=== PATIENT | female | born 1965 ===

== ENCOUNTER 2024-02-15 12:20 | Outpatient (REF) | payer SELFPAY ==
[2024-02-15 16:38] LABS: Basophils Percent Auto 0.5 % (0-2); Eosinophils Absolute Auto 0.1 X10*3/uL (0.0-0.4); Eosinophils Percent Auto 0.9 % (0-4); Hematocrit 40.6 % (37.0-47.0); Imm Gran Abs Auto 0.01 X10*3/uL (0.00-0.03); Imm Gran Pct Auto 0.2 % (0.0-0.4); Lymphocytes Percent Auto 34.7 % (20-40); MANUAL DIFF FLAG NO; Mean Corpuscular Hemoglobin 27.5 pg (27.0-33.0); Mean Platelet Volume 9.9 fL (9.4-12.3); Monocytes Absolute Auto 0.4 X10*3/uL (0.1-1.2); Monocytes Percent Auto 7.1 % (2-11); Neutrophils Absolute Auto 3.2 x10*3/uL (2.0-8.3); Neutrophils Percent Auto 56.6 % (45-73); Platelet Count 319 X10*3/uL (160-400); Red Blood Count 4.72 X10*6/uL (4.20-5.50); Red Cell Distribution Width 16.4 % (11.0-16.0); White Blood Count 5.6 X10*3/uL (4.8-10.8)
[2024-02-15 17:12] LABS: Estimated Average Glucose 126 mg/dL
[2024-02-15 17:20] LABS: Alanine Aminotransferase 10 U/L (0-31); Albumin Level 3.8 g/dL (3.5-5.0); Alkaline Phosphatase 61 U/L (39-117); Anion Gap 14 (12-20); Aspartate Amino Transferase 18 U/L (5-31); Bilirubin Total 0.3 mg/dL (0.0-1.0); Blood Urea Nitrogen 8 mg/dL (9-16); Calcium 9.6 mg/dL (8.4-10.2); Carbon Dioxide 22 mmol/L (22-29); Chloride 107 mmol/L (96-108); Cholesterol 221 mg/dL (<200); Estimated Glomerular Filt Rate > 60; Glucose Random 70 mg/dL (60-115); HDL Cholesterol 38 mg/dL (>40); LDL Cholesterol Calculated 147 mg/dL (<100); Potassium 4.1 mmol/L (3.3-5.1); Sodium 139 mmol/L (135-145); Total Protein 7.5 g/dL (6.5-8.0); Triglycerides 184 mg/dL (<150)
[2024-02-15 17:32] LABS: Thyroid Stimulating Hormone 1.35 uIU/mL (0.32-4.0)
== END 2024-02-15 12:21 | disposition home or self-care (01) ==
LOC: HO.HHCL 12:20
PROVIDERS: Visit Provider Nurse Practitioner Family
DX: E03.8 Other specified hypothyroidism (principal); E06.3 Autoimmune thyroiditis; I10 Essential (primary) hypertension; E11.9 Type 2 diabetes mellitus without complications; R55 Syncope and collapse; R30.0 Dysuria
CPT/HCPCS: 36415; 80053; 80061; 83036; 84443; 85025; 87086

== ENCOUNTER 2024-02-29 10:11 | Outpatient (REF) | payer MEDICAID, SELFPAY ==
--- NOTE | ~2024-02-29 | XR_ITS ---
EXAMINATION: XR SHOULDER, RIGHT CLINICAL INFORMATION: Right shoulder pain with decreased range of motion. COMPARISON: None available. TECHNIQUE: AP external rotation, Grashey, scapular Y, and axillary views of the right shoulder. FINDINGS: No fracture appreciated. Glenohumeral and acromioclavicular alignment is anatomic with normal joint space. Mild thoracic dextrocurvature. Soft tissues appear unremarkable. XR/XR shoulder RT min 2V IMPRESSION: Essentially unremarkable plain film examination of the right shoulder. Electronically signed by: Jose Jon MD 02/29/2024 11:25 AM EDT
== END 2024-02-29 10:12 | disposition home or self-care (01) ==
LOC: HO.HHCX 10:11
PROVIDERS: Visit Provider Nurse Practitioner Family
DX: M12.811 Other specific arthropathies, not elsewhere classified, right shoulder (principal)
CPT/HCPCS: 73030

== ENCOUNTER 2025-01-30 09:18 | Outpatient (REF) | payer MEDICAID, SELFPAY ==
--- OUTSIDE RECORDS SUMMARY | 2025-01-30 09:00 | XMS_ITS | Encounter Summary ---
Author Organization [employer] Address [address] [facility] [address] [place] [address] Care Team Providers Care Customer Care Associate Name Role Phone Denisha Cardenas NP Primary Care Provider [phone] Reason for Visit * Reason Comments Back Pain UTI Encounter Details Date Type Department Care Team ([facility] Contact Info) Description 01/30/2025 9:00 AM EDT Office Visit [facility] [address] [place], [place] [phone] Maylin Mensah, TAYLER [address] [place] [address] Ketonuria (Primary Dx); UTI symptoms Social History [...] new partners Non-smoker Kulwant Bain ROBER provided Khmer interpretation. Review of Systems Constitutional: Negative for [...] sciatic nerve pain documented in this encounter Plan of Treatment Upcoming Encounters Date Type Department Care Team (Late st Contact Info) Description 02/03/2025 1:15 PM EDT Office Visit [facility] [address] [place], [place] [phone] Cecilia Blood, ENRIKE [address] [place], [place] [phone] 03/06/2025 2:30 PM EDT Office Visit [facility] [address] [place] [address] Denisha Cardenas NP [address] [place], [place] [phone] Scheduled Orders Name Type Priority Associated Diagnoses Orde r Schedule Culture, Urine, Routine Microbiology Routine UTI symptoms Ordered: 01/30/2025 documented as of this encounter Procedures Procedure Name Priority Date/Time Associated Diagnosis Comments POCT URINALYSIS DIPSTICK Routine 01/30/2025 8:56 AM EDT UTI symptoms documented in this encounter Results * POCT urinalysis dipstick manually resulted (01/30/2025 [...] None Detected Urine 01/30/2025 8:56 AM EDT Critical access hospital POINT OF CARE TEST ENTER/EDIT OR DERABLES Final Result documented in this encounter Visit Diagnoses Diagnosis Ketonuria- Primary Acetonuria UTI symptoms documented in this encounter Additional Health Concerns Assessment Noted Time PHQ-9 Depression Total Score: 7 09/10/19 25 10:37 AM EDT documented as of this encounter Care Teams Customer Care Associate Relationship Specialty Start Date End Date Denisha Cardenas NP [address] [place] [phone] PCP - General Family Medicine 02/15/24 documented as of this encounter
--- OUTSIDE RECORDS SUMMARY | 2025-01-30 10:02 | XMS_ITS | Clinical Summary ---
Author Organization [facility] Address [address] [place] [address] Care Team Providers Care Training Systems Officer Name Role Phone Unavailable Primary Care Provider Unavailabl e Social History Tobacco Use Types Packs/Day Years Used Date Smoking Tobacco: Never Assessed Comments Unknown Sex and Gender Information Value Date Recorded Sex Assigned at Not on file Legal Sex Female 11:38 AM EDT Gender Identity Not on file Sexual Orientation Not on file Plan of Treatment Health Maintenance Due Date Last Done Comments Breast Cancer Screening 1966 DTaP,Tdap,and Td Vaccines (1 - Tdap) 1985 Hepatitis B Vaccines (1 of 3 - 19+ 3-dose series) 1985 Cervical Cancer Screening: P ap Smear 1987 Pneumococcal Vaccine: 50+ Ye ars (1 of 1 - PCV) 2016 Zoster Vaccines (1 of 2) 2016 Colorectal Cancer Screening: Colonoscopy 03/05/2024 HIV Screening 03/05/2024 Hepatitis C Screening 03/05/2024 Social Influencers of Health Screening 03/05/2024 Depression Screening 05/28/2024 COVID-19 Vaccine ( - 2023-2 5 season) 2025 Influenza Vaccine (#1) 2025 HIB Vaccines Aged Out No longer eligi ble based on patient's age to complete this topic HPV Vaccines Aged Out No longer eligi ble based on patient's age to complete this topic Hepatitis A Vaccines Aged Out No long er eligible based on patient's age to complete this topic IPV Vaccines Aged Out No longer eligi ble based on patient's age to complete this topic MMR Vaccines Aged Out No longer eligi ble based on patient's age to complete this topic Meningococcal ACWY Vaccine Aged Out N o longer eligible based on patient's age to complete this topic Meningococcal B Vaccine Aged Out No l onger eligible based on patient's age to complete this topic RSV Immunization Patients Un fariba 20 months Aged Out No longer eligible b ased on patient's age to complete this topic Varicella Vaccines Aged Out No longer eligible based on patient's age to complete this topic
--- OUTSIDE RECORDS SUMMARY | 2025-01-30 10:02 | XMS_ITS | Encounter Summary ---
Author Organization [employer] Address [address] [facility] 7 [place] [address] Care Team Providers Care Steamblaster Name Role Phone Denisha Cardenas NP Primary Care Provider [phone] Encounter Details Date Type Department Care Team ([facility] st Contact Info) Description 10/14/2024 Orders Only [facility] [address] [place], [place] [phone] Emani Farmer MD [address] [place] [address] Social History Tobacco Use Types Packs/Day Years [...] AM EDT documented as of this encounter Plan of Treatment Upcoming Encounters Date Type Department Care Team (Late st Contact Info) Description 02/03/2025 1:15 PM EDT Office Visit [facility] [address] [place] [address] Cecilia Blood, OD [address] [place] [address] 03/06/2025 2:30 PM EDT Office Visit [facility] [address] [place] [address] Denisha Cardenas NP [address] [place] [address] documented as of this encounter Visit Diagnoses Not on filedocumented in this encounter Additional Health Concerns Assessment Noted Time PHQ-9 Depression Total Score: 7 09/10/19 25 10:37 AM EDT documented as of this encounter Care Teams Steamblaster Relationship Specialty Start Date End Date Denisha Cardenas NP [address] [place] [phone] PCP - General Family Medicine 02/15/24 documented as of this encounter
--- OUTSIDE RECORDS SUMMARY | 2025-01-30 10:03 | XMS_ITS | Encounter Summary ---
Author Organization [employer] Address [address] [facility] [address] [place] [address] Care Team Providers Care Office Administrator Name Role Phone Denisha Cardenas NP Primary Care Provider [phone] Encounter Details Date Type Department Care Team (Latest Contact Info) Description 01/30/2025 Travel Social History Tobacco Use Types Packs/Day Years [...] Description 02/03/2025 1:15 PM EDT Office Visit [facility] [address] [place] [address] Cecilia Blood, OD [address] [place] [address] 03/06/2025 2:30 PM EDT Office Visit [facility] [address] [place] [address] Denisha Cardenas NP [address] [place] [address] documented as of this encounter Visit Diagnoses Not on filedocumented in this encounter Additional Health Concerns Assessment Noted Time PHQ-9 Depression Total Score: 7 09/10/19 25 10:37 AM EDT documented as of this encounter Care Teams Office Administrator Relationship Specialty Start Date End Date Denisha Cardenas NP [address] [place] [address] PCP - General Family Medicine 02/15/24 documented as of this encounter
--- OUTSIDE RECORDS SUMMARY | 2025-01-30 10:03 | XMS_ITS | Clinical Summary ---
Author Organization [employer] Address [address] [place] [address] [address], [place] [address] Care Team Providers Care Pony Ride Operator Name Role Phone Denisha Cardenas NP Primary Care Provider [phone] Allergies Active Allergy Reactions Criticality Noted Date Comments Dexamethasone Rash Low 04/11/2024 Ketorolac Tromethamine Rash Low 04/11/2024 Shellfish Allergy 02/15/2024 Other Reaction(s): swelling, itching Medications * This document contains information received from the source organization and may not represent a complete record from that organization. levothyroxine (Synthroid) 25 MCG tablet Take 1 tablet (25 mcg) by mouth before breakfast. 90 tablet 3 4 03/28/20 25 Active losartan (Cozaar) 50 MG tablet TAKE 1 TABLET BY MOUTH EVERY DAY 90 tablet 5 Active Ketotifen Fumarate 0.035 % solutionIndicat ions:Seasonal allergic rhinitis due to pollen Administer 1 drop into affected eye(s) 2 times daily. 10 mL 2 5 Active sertraline (Zoloft) 100 MG tabletIndicatio ns:Anxiety Take 1 tablet (100 mg) by mouth in the morning. 30 tablet 1 5 Active clonazePAM (KlonoPIN) 0.5 MG tabletIndicatio ns:JIMBO (generalized anxiety disorder) Take 1 tablet (0.5 mg) by mouth if needed each day for anxiety (as needed for panic). 30 tablet 5 Active cromolyn (Nasachrom) 5.2 MG/ACT nasal spray Administer 1 spray into each nostril 4 times daily. 26 mL 12 5 10/15/19 26 Active pantoprazole (ProtoNix) 40 MG EC tablet TAKE 1 TABLET BY MOUTH BEFORE BREAKFAST. DO NOT CRUSH, CHEW OR SPLIT. 90 tablet 1 5 Active loratadine (Claritin) 10 MG tabletIndicatio ns:Seasonal allergic rhinitis due to pollen TAKE 1 TABLET (10 MG) BY MOUTH ONCE PER DAY. 90 tablet 5 Active hydrOXYzine pamoate (Vistaril) 25 MG capsuleIndicati ons:JIMBO (generalized anxiety disorder) Take 1 capsule (25 mg) by mouth if needed in the morning and at bedtime for anxiety. May take the 2 caps at hs. Do not start before November 08, 2024. 30 capsule 1 5 Active cyclobenzaprine (Flexeril) 10 MG tabletIndicatio ns:Right sciatic nerve pain Take 1 tablet (10 mg) by mouth if needed at bedtime for muscle spasms for up to 10 days. 30 tablet 5 Active Active Problems Problem Noted Date Diagnosed Date Right sciatic nerve pain 11/14/2024 Assessment & Plan (11/16/2024 3:57 PM EDT): Pt with right leg sciatica, no oncologic history, no consitutional symptoms fever, no symptoms are gradually improving Referral to pt Return to clinic for reassessment, Dietary counseling 10/06/2024 Assessment & Plan (10/19/2024 2:57 PM EDT): Dietary Recommendations: Fruits, vegetables, whole grains, protein foods, and fat-free or low-fat dairy products are healthy choices. Eat different types of protein foods in your diet. This can include seafood, lean meats, poultry, beans, peas, lentils, nuts, seeds, soy products, and eggs. Limit foods and beverages higher in added sugars, saturated fat, and sodium. Exercise Recommendations: At least 150 minutes of moderate-intensity physical activity per week, or an equivalent combination of moderate- and vigorous-intensity activity Exercise counseling 10/06/2024 Hyperglycemia 10/06/2024 Hypothyroidism 10/06/2024 Seasonal allergic rhinitis due to pollen 025 Assessment & Plan (10/19/2024 2:58 PM EDT): Flonase and nasal spray prescribed Return to clinic for failure to improve. Panic 08/18/2024 Severe episode of recurrent major depressive disorder, without psychotic features 05/26/2024 Chronic right shoulder pain 05/26/2024 Assessment & Plan (05/26/2024 5:41 PM EST): Referral to ortho pt has limited rom Gastroesophageal reflux disease 05/26/2024 Obesity (BMI 35.0-39.9 without comorbidity) 04/29 Symptomatic varicose veins of right lower extrem ity 05/26/2024 Assessment & Plan (05/26/2024 5:42 PM EST): Trial compression stockings, ordered today Health maintenance alteration 05/26/2024 Irritable bowel syndrome wit h both constipation and diarrhea 04/14/2024 Assessment & Plan (05/26/2024 5:42 PM EST): Upcoming visit with GI Assessment & Plan (04/14/2024 2:11 PM EST): Increased IBS symptoms, has had endoscopy and colonoscopy within last 2 years for these symptoms, but does endorse increased anxiety and intermittent benefit from pepcid Add pantoprazole, follow up in 4 weeks If no improvement referral to GI No wt loss, no abd pain no blood in stool Anxiety 04/14/2024 Assessment & Plan (04/14/2024 2:11 PM EST): Increase sertraline to 100 mg, referral to Follow up in 4 weeks Vertigo 04/14/2024 Assessment & Plan (04/14/2024 2:12 PM EST): Brief sensation of unsteadiness after turning head rapidly, Resolves within minutes Monitor, consider ENT Rotator cuff arthropathy, right 02/29/2024 Assessment & Plan (02/29/2024 10:29 AM EDT): Suspect frozen shoulder, limited forward flexion on exam and no preceding trauma, X-ray ordered, Referral to physical therapy and ortho Breast screening 02/29/2024 Pre-diabetes 02/28/2024 Elevated lipoprotein(a) 02/28/2024 Assessment & Plan (02/29/2024 10:30 AM EDT): Above goal, consider statin, Will address at follow up visit as losartan reduction and hypotension was today's focus Hypertension 02/15/2024 Assessment & Plan (05/26/2024 5:42 PM EST): At goal at home, Continue current regimen Assessment & Plan (04/14/2024 2:11 PM EST): At goal with losartan 50 mg. continue Assessment & Plan (02/29/2024 10:23 AM EDT): Hypotension possibly secondary to overcorrection, bps at home consistently well below goal and pt lightheaded with position change Reduce losartan 50 mg. 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 Assessment & Plan (02/15/2024 6:04 PM EDT): Resume levothyroxine, labs ordered JIMBO (generalized anxiety disorder) 02/15/2024 Assessment & Plan (02/15/2024 6:05 PM EDT): Reviewed sparing usage of clonapin, I will renew, but enouraged pt to not take daily and rx will ideally last 45 days Pt open to increasing sertraline , increase to 50 mg Ibh unavailable at time of visit but will call pt this afternoon Presence of implantable pulm onary artery pressure and heart rate monitoring system 02/15/2024 Assessment & Plan (02/15/2024 6:04 PM EDT): Referral to cardiology Syncope 02/15/2024 Cardiac arrhythmia 02/15/2024 Encounters * This document contains information received from the source organization and may not represent a complete record from that organization. Date Type Department Care Team Description 01/30/2025 9:00 AM EDT Office Visit [facility] [address] [place] [phone] Maylin Mensah ANP Ketonuria (Primary Dx); UTI symptoms 01/30/2025 Travel 01/20/2025 Patient Outreach [facility] [address] [place] [phone] Denisha Cardenas NP Care Coordination ([facility]3 [facility] telephone call graduate ) 01/20/2025 Patient Outreach [facility] [address] [place] [phone] Denisha Cardenas NP Care Coordination ([facility] telephone call outreach) 01/13/2025 Telephone [facility] [address] [place] [phone] Cecilia Blood, ENRIKE 01/13/2025 Travel 12/17/2024 Patient Outreach [address] [phone] Denisha Cardenas NP Care Management (C3[facility]- Follow up call/LVM) 11/19/2024 Patient Outreach [address] [phone] Denisha Cardenas NP Care Coordination 11/17/2024 2:45 PM EDT Office Visit [facility] [address] [place] [phone] Galina Holland, OD Presbyopia (Primary Dx) 11/14/2024 4:00 PM EDT Office Visit [facility] [address] [place] [phone] Denisha Cardenas NP Type 2 diabetes mellitus without complication, unspecified whether senior care insulin use ([facility]) (Primary Dx); Right sciatic nerve pain 11/14/2024 Travel 11/12/2024 Patient Outreach [address] [phone] Denisha Cardenas NP 11/11/2024 Patient Outreach [address] [phone] Denisha Cardenas NP Care Management (C3[facility]- Follow up call # 3) 11/07/2024 Patient Outreach [address] [phone] Denisha Cardenas NP Care Coordination 11/04/[address] [phone] Denisha Cardenas NP Seasonal allergic rhinitis due to pollen from Last 3 Months Family History Medical History Relation Name Comments Diabetes Brother Diabetes Father Diabetes Mother Glaucoma Mother Relation Name Status Comments Brother Father Mother Social History Tobacco Use Types Packs/Day Years Used Date Smoking Tobacco: Never Passive Smoke Exposure: Never Smokeless Tobacco: Never Tobacco Cessation:Counseling Given: Not Answered Alcohol Use Standard Drinks/Week Comments Never 0 (1 standard drink = 0.6 oz pur e alcohol) Depression Answer Date Recorded Patient Health Questionnaire-9 Score 7 09/09/2024 Patient Health Questionnaire-9 Score 7 09/09/2024 Last PHQ-9: Questionnaire Data Not on file 0 09/09/2024 Housing Stability Answer Date Recorded What is your housing situation today? I have siapranav palacios 02/15/[address] you [...] the past 12 months, has t he [employer], [employer], oil or water company threatened to shut [...] Orientation Straight 02/15/2024 10 :49 AM EDT Last Filed Vital Signs Vital Sign Reading Time Taken Comments Blood Pressure 120/88 01/30/2025 9:10 AM EDT Pulse 75 01/30/2025 8:51 AM EDT Temperature 36.3 C (97.3 F) 01/30/2025 8:51 AM EDT Respiratory Rate 18 01/30/2025 8:51 AM EDT Oxygen Saturation 97% 01/30/2025 8:51 AM EDT Inhaled Oxygen Concentration - - Weight 101 kg (222 lb 9.6 oz) 01/30/2025 8:51 AM EDT Height 160 cm (5' 3 ) 10/06/2024 3:17 PM EDT Body Mass Index 39.43 10/06/2024 3:17 PM EDT Plan of Treatment Upcoming Encounters Date Type Department Care Team (Late st Contact Info) Description 02/03/2025 1:15 PM EDT Office Visit [facility] [address] [place] [address] Cecilia Blood, OD [address] [place] [address] 03/06/2025 2:30 PM EDT Office Visit [facility] [address] [place] [address] Denisha Cardenas NP [address] [place] [address] Health Maintenance Due Date Last Done Comments CT Colonography 1966 Colonoscopy 1966 Colorectal Cancer Screening 1966 FIT DNA/Cologuard 1966 FIT 1966 FOBT 1966 HIV Screening 1966 Sigmoidoscopy 1966 Disability Screening 1966 Diabetes: Foot Exam 1976 Hepatitis C Screening 1984 DTaP/Tdap/Td Vaccines (1 - Tdap) 1985 Diabetes: Urine Protein Screening 1985 Hepatitis B Vaccines (1 of 3 - 19+ 3-dose series) 1985 Pneumococcal Vaccine: 50+ Years (1 of 2 - PCV) 1985 Pap Smear 1987 Cervical Cancer Screening 1996 HPV/Cotest 1996 Zoster Vaccines (1 of 2) 2016 COVID-19 Vaccine ( season) 2025 Influenza Vaccine (#1) 2025 Lipid Panel 02/14/2025 02/15/2024 Alcohol/Substance Use Screening 02/28/2025 02/29/2024 Diabetes: Hemoglobin A1C 04/08/2025 10/06/2024, 01/27 Depression Screening 09/09/2025 09/09/2024, 09/10/19 SDOH Screening 09/11/2025 09/11/2024 Eye Exam 10/14/2025 10/14/2024, 09/26, 10/14/2024, Additional history exists Tobacco Screening 10/14/2025 10/14/2024 Mammogram 03/08/2026 03/08/2024 RSV Patients and Patients Aged 60 years or older (1 - 1-dose 75+ series) 2041 HIB Vaccines Aged Out No longer eligi [...] patient's age to complete this topic Meningococcal Vaccine Aged Out No mady raulito eligible based on patient's age to complete this topic RSV under 20 months Aged Out No longe r eligible based on patient's age to complete this topic Rotavirus Vaccines Aged Out No longer eligible based on patient's age to complete this topic Procedures Procedure Name Priority Date/Time Associated Diagnosis Comments POCT URINALYSIS DIPSTICK Routine 01/30/2025 8:56 AM EDT UTI symptoms POCT GLUCOSE Routine 11/14/2024 4:06 PM EDT Type 2 diabetes mellitus without complication, unspecified whether senior care insulin use ([facility]) POCT GLYCATED HEMOGLOBIN, TOTAL Routine 10/06/2024 3:20 PM EDT Type 2 diabetes mellitus without complication, without long-term current use of insulin ([facility]) BI MAMMOGRAM SCREENING TOMOSYNTHESIS BILATERAL Routine 03/08/2024 Breast screening LIPID PANEL, STANDARD Routine 02/15/2024 12:22 PM EDT Hypertension, unspecified type from Last 3 Months or Most Recently Relevant to Health Maintenance Results * POCT urinalysis dipstick manually resulted [...] CARE TEST ENTER/EDIT OR DERABLES Final Result * POCT Glucose (11/14/2024 4:06 PM EDT) Glucose Blood, POC 123 60 - 200 mg/dL QC Media Lot # [id number] Lot# Expiration Date ,025 Blood Capillary blood specimen / Unknown 11/14/2024 4:06 PM EDT Denisha Graef LINE DRIVER POINT OF CARE TEST ENTER/EDIT OR DERABLES Final Result * POCT HGB A1C (10/06/2024 3:20 PM EDT) Hemoglobin A1C 5.9 4.0 - 6.0 % QC Media Lot # [id number] Lot# Expiration Date ,772,712 Blood 10/06/2024 3:20 PM EDT Denisha Cardenas NP POINT OF CARE TEST ENTER/EDIT OR DERABLES Final Result * BI Mammogram Screening Tomosynthesis Bilateral (03/08/2024) Anatomical Region Laterality Modality Breast Bilateral Mammography Denisha Cardenas LINE DRIVER IMG BI PROCEDURES Edited Result - Final * (ABNORMAL) Lipid Panel, Standard (02/15/2024 12:22 PM EDT) Triglycerides 184(H) <150 mg/dL [facility] Comment:Desirable Triglyceri de: less than 150 mg/dLBorderline High Triglyceride 150-199 mg/dLHigh Triglyceride: 200-499 mg/dLVery High Triglyceride: greater than or equal to 5OO mg/dL Cholesterol 221(H) <200 mg/dL [facility] Comment:Desirable Cholestero l: less than 200 mg/dLBorderline High Cholesterol: 200-239 mg/dLHigh Cholesterol: greater than 239 mg/dL LDL Cholesterol Calculated 147(H) <100 mg/dL [facility] Comment:Desirable LDL: less than 100 mg/dLNear Optimal/Above Optimal LDL: 110- 129 mg/dLBorderline High LDL: 130-159 mg/dLHigh LDL: 160-189 mg/dLVery High LDL: greater than or equal to 190 mg/dL HDL Cholesterol 38(L) >40 mg/dL [facility] Comment:Desirable HDL: great er than 40 mg/dL Note: This HDL assay may give artificially low results in patients with liver disease. Blood Venous blood specimen / Unknown 02/15/2024 12:22 PM EDT 02/15/2024 4:17 PM EDT us Denisha Cardenas LINE DRIVER LAB BLOOD ORDERABLES Final Resul t [facility] [address] [place] [address] [phone] from Last 3 Months or Most Recently Relevant to Health Maintenance Insurance [facility] C3 Care Teams Pony Ride Operator Relationship Specialty Start Date End Date Denisha Cardenas NP [address] [place] [phone] PCP - General Family Medicine 02/15/24
[2025-01-30 11:35] LABS: Hemoglobin A1C 149.6776 umol/L; Total Hemoglobin (HGBA1C) 3421.1225 umol/L
[2025-01-30 11:53] LABS: Alanine Aminotransferase 14 U/L (0-31); Albumin Level 4.1 g/dL (3.5-5.0); Alkaline Phosphatase 69 U/L (39-117); Anion Gap 10 (12-20); Aspartate Amino Transferase 24 U/L (5-31); Blood Urea Nitrogen 10 mg/dL (9-16); Calcium 9.1 mg/dL (8.4-10.2); Carbon Dioxide 26 mmol/L (22-29); Chloride 109 mmol/L (96-108); Cholesterol 224 mg/dL (<200); Estimated Glomerular Filt Rate > 60; HDL Cholesterol 45 mg/dL (>40); Potassium 4.1 mmol/L (3.3-5.1); Sodium 141 mmol/L (135-145); Total Protein 7.4 g/dL (6.5-8.0); Triglycerides 112 mg/dL (<150)
== END 2025-01-30 09:19 | disposition home or self-care (01) ==
LOC: HO.HHCL 09:18
PROVIDERS: PCP Nurse Practitioner Family; Referring Provider Nurse Practitioner Primary Care; Visit Provider Nurse Practitioner Family
DX: E11.65 Type 2 diabetes mellitus with hyperglycemia (principal); E06.3 Autoimmune thyroiditis; R39.9 Unspecified symptoms and signs involving the genitourinary system
CPT/HCPCS: 36415; 80053; 80061; 83036; 84443; 87086

== ENCOUNTER 2025-02-04 12:15 | Outpatient (REF) | payer MEDICAID, SELFPAY ==
--- OUTSIDE RECORDS SUMMARY | 2025-01-30 09:00 | XMS_ITS | Encounter Summary ---
Author Organization [employer] Address [address] [facility] [address] [place] [address] Care Team Providers Care Food Assembler Commissary Kitchen Name Role Phone Denisha Cardenas NP Primary Care Provider [phone] Reason for Visit * Reason Comments Back Pain UTI Encounter Details Date Type Department Care Team ([facility] Contact Info) Description 01/30/2025 9:00 AM EDT Office Visit [facility] [address] [place], [place] [phone] Maylin Mensah, TAYLER [address] [place] [address] Ketonuria (Primary Dx); UTI symptoms Social History Tobacco Use Types Packs/Day Years Used Date Smoking Tobacco: Never Passive Smoke Exposure: Never Smokeless Tobacco: Never Alcohol Use Standard Drinks/Week Comments Never 0 (1 standard drink = 0.6 oz pur e alcohol) Depression Answer Date Recorded Patient Health Questionnaire-9 Score 7 09/09/2024 Patient Health Questionnaire-9 Score 7 09/09/2024 Last PHQ-9: Questionnaire Data Not on file 0 09/09/2024 Housing Stability Answer Date Recorded What is your housing situation today? I have sia palacios 02/15/[address] you li ve. Do you have problems with any of the following? None of the above 02/15/2024 Food Insecurity Answer Date Recorded Within the past 12 months, y ou worried that your food would run out before you got money to buy more: Sometimes True 2024 Within the past 12 months,th e food you bought just didn't last and you didn't have enough money to get more: Sometimes True 09/11/2024 Transportation Answer Date Recorded In the past 12 months, has l ack of transportation kept you from medical appts, meetings, work or from getting things needed for daily living? Yes, it has kept me from medical appointments or getting medications. 09/11/2024 Utilities Answer Date Recorded In the past 12 months, has t he electric, gas, oil or water company threatened to shut off services in your home? No 02/15/2024 Depression Answer Date Recorded Patient Health Questionnaire-2 Score 2 09/09/2024 Internet Access Answer Date Recorded Internet Access Q1 Yes 02/15/2024 Internet Access Q2 Not on file 02/15/2024 Comments Unknown Sex and Gender Information Value Date Recorded Sex Assigned at Female 02/15/2024 10:35 AM EDT Legal Sex Female 9:27 AM EDT Gender Identity Female 02/15/2024 10:35 AM EDT Sexual Orientation Straight 02/15/2024 10 :49 AM EDT documented as of this encounter Last Filed Vital Signs Vital Sign Reading Time Taken Comments Blood Pressure 120/88 01/30/2025 9:10 AM EDT Pulse 75 01/30/2025 8:51 AM EDT Temperature 36.3 C (97.3 F) 01/30/2025 8:51 AM EDT Respiratory Rate 18 01/30/2025 8:51 AM EDT Oxygen Saturation 97% 01/30/2025 8:51 AM EDT Inhaled Oxygen Concentration - - Weight 101 kg (222 lb 9.6 oz) 01/30/2025 8:51 AM EDT Height - - Body Mass Index 39.43 10/06/2024 3:17 PM EDT documented in this encounter Progress Notes * TAYLER Forde - 01/30/2025 9:00 AM EDT Gerry Bright is 59 y.o. patient here today for sick visit. HPI PMH incl T2DM, HTN, hypothyroid, chronic back pain Lab Results Component Value Date HGBA1C 5.9 10/06/2024 Has not taken BP med yet today b/c she hasn't eaten yet. Has 2 d of burning w/ urination, no fever, chills, abd pain No frequency, no vaginal discharge or itching Does have low back pain on R but this is not new for her Drinks 3 bottles water daily No new partners Non-smoker Kulwant Bain ROBER provided Urdu interpretation. Review of Systems Constitutional: Negative for chills and fever. HENT: Negative for sore throat. Respiratory: Negative for cough and shortness of breath. Cardiovascular: Negative for chest pain. Gastrointestinal: Negative for constipation and diarrhea. Endocrine: Negative for polydipsia, polyphagia and polyuria. Genitourinary: Positive for dysuria. Negative for difficulty urinating, dyspareunia, flank pain, frequency, hematuria, pelvic pain and urgency. Problem List[1] Objective BP 120/88 (BP Location: Left arm, Patient Position: Sitting, BP Cuff Size: Large adult) Pulse 75 Temp 97.3 ??F (36.3 ??C) (Temporal) Resp 18 Wt 222 lb 9.6 oz (101 kg) SpO2 97% BMI 39.43 kg/m?? Physical Exam Constitutional: General: She is not in acute distress. Appearance: Normal appearance. She is not ill-appearing. HENT: Head: Normocephalic and atraumatic. Eyes: General: No scleral icterus. Extraocular Movements: Extraocular movements intact. Pupils: Pupils are equal, round, and reactive to light. Cardiovascular: Rate and Rhythm: Normal rate and regular rhythm. Pulmonary: Effort: Pulmonary effort is normal. No accessory muscle usage or respiratory distress. Breath sounds: Normal breath sounds. Abdominal: Tenderness: There is no right CVA tenderness or left CVA tenderness. Musculoskeletal: Comments: TTP R low back Skin: General: Skin is warm and dry. Neurological: Mental Status: She is alert and oriented to person, place, and time. Psychiatric: Mood and Affect: Mood normal. Behavior: Behavior normal. Diagnoses and all orders for this visit: UTI symptoms UA w/ trace leuks, +ketones but no glu, high SG, trace protein Recommend hydration aggressively through weekend and get labs as ordered by PCP, will not tx for UTI today but send out cx and await results given UA w/ trace leuks but no nit, blo Increase fluids. Urinate after sex. Avoid bladder irritants. Report fever, chills, worsening symptoms or abdominal/flank pain Schedule follow-up w/ PCP - POCT urinalysis dipstick manually resulted - Culture, Urine, Routine Office Visit on 01/30/2025 Component Date Value Ref Range Status Color, UA 01/30/2025 Yellow Final Clarity, UA 01/30/2025 Clear Final Glucose, UA 01/30/2025 Negative Final Bilirubin, UA 01/30/2025 Few 15 Final Small Ketones, UA 01/30/2025 Positive Final 40 mg/dL Spec Grav, UA 01/30/2025 1.030 Final Blood, UA 01/30/2025 Negative Negative, None Detected Final pH, UA 01/30/2025 5.5 Final Protein, UA 01/30/2025 Trace Final Urobilinogen, UA 01/30/2025 0.2 Final Leukocytes, UA 01/30/2025 Trace Negative, Rare, Trace Final Nitrite, UA 01/30/2025 Negative Negative, None Detected Final [1] Patient Active Problem List Diagnosis Hypertension Type 2 diabetes mellitus without complication (CMS/HCC) Hypothyroidism due to Williams's thyroiditis JIMBO (generalized anxiety disorder) Presence of implantable pulmonary artery pressure and heart rate monitoring system Syncope Cardiac arrhythmia Pre-diabetes Elevated lipoprotein(a) Rotator cuff arthropathy, right Breast screening Irritable bowel syndrome with both constipation and diarrhea Anxiety Vertigo Severe episode of recurrent major depressive disorder, without psychotic features (CMS/HCC) Chronic right shoulder pain Gastroesophageal reflux disease Obesity (BMI 35.0-39.9 without comorbidity) Symptomatic varicose veins of right lower extremity Health maintenance alteration Panic Dietary counseling Exercise counseling Hyperglycemia Hypothyroidism Seasonal allergic rhinitis due to pollen Right sciatic nerve pain documented in this encounter Miscellaneous Notes * Addendum Note - Nikki Gonzalez RN - 01/30/2025 9:00 AM EDTAddended by: NIKKI GONZALEZ on: 02/04/2025 12:11 PM Modules accepted: Orders documented in this encounter Plan of Treatment Upcoming Encounters Date Type Department Care Team (Late st Contact Info) Description 03/06/2025 2:30 PM EDT Office Visit [facility] [address] [place] [address] Denisha Cardenas NP [address] [place], [place] [phone] documented as of this encounter Procedures Procedure Name Priority Date/Time Associated Diagnosis Comments URINALYSIS, COMPLETE, WITH REFLEX TO CULTURE Routine 02/04/2025 12:25 PM EDT UTI symptoms Ketonuria CULTURE, URINE, ROUTINE Routine 01/30/2025 8:59 AM EDT UTI symptoms POCT URINALYSIS DIPSTICK Routine 01/30/2025 8:56 AM EDT UTI symptoms documented in this encounter Results * (ABNORMAL) Urinalysis, Complete, with Reflex to Culture (02/04/2025 12:25 PM EDT) Color Urine Yellow [facility] Appearance Urine Clear [facility] PH 5.5 5.0 - 9.0 [facility] Glucose Urine UA Negative Negative mg/dL [facility] Urine Blood Negative Negative [facility] Specific Mcgregor - Urine 1.015 1.005 - 1.025 [facility] Urine Protein Negative Neg-Trace mg/dL [facility] Urine Ketones Negative Negative mg/dL [facility] Nitrite Urine Negative Negative [facility] Leukocyte Esterase Urine Trace(A) Negative [facility] RBC Urine 0-2 0 - 2 /HPF [facility] Urine WBC 0-5 0 - 5 /HPF [facility] Urine Squamous Epithelial Cell 0-2 0 - 2 /HPF [facility] Urine Bacteria None Seen None Seen [facility] Hyaline Casts, Urine 0-2 0 - 2 /LPF [facility] Urine 02/04/2025 12:2 5 PM EDT 02/04/2025 1:26 PM EDT Narrative [facility] - 02/04/2025 2:02 PM EDT Urine, Clean Catch us [facility] URINE ORDERABLES Final Resul t [facility] [address] [place] [phone] * Culture, Urine, Routine (01/30/2025 8:59 AM EDT) Urine Urine specimen obtained by clean catch procedure / Unknown 01/30/2025 8:59 AM EDT 01/30/2025 4:39 PM EDT Comment:UACC Narrative [facility] - 02/01/2025 11:00 AM EDT Urine Culture Report Result Urine Culture 10,000 to 50,000 cfu/ml Urine Culture Mixed bacterial mahad characteristic of Urine Culture urogenital contamination. Specimen Source: Urine clean catch us [facility] MICROBIOLOGY - GENERAL ORDER ANIYAH Final Result [facility] [address] [place] [phone] * POCT urinalysis dipstick manually resulted (01/30/2025 8:56 AM EDT) Color, UA Yellow Clarity, UA Clear Glucose, UA Negative Bilirubin, UA Few 15 Comment:Small Ketones, UA Positive Comment:40 mg/dL Spec Grav, UA 1.030 Blood, UA Negative Negative, None Detected pH, UA 5.5 Protein, UA Trace Urobilinogen, UA 0.2 Leukocytes, UA Trace Negative, Rare, Trace Nitrite, UA Negative Negative, None Detected Urine 01/30/2025 8:56 AM EDT us [facility] POINT OF CARE TEST ENTER/EDIT OR DERABLES Final Result documented in this encounter Visit Diagnoses Diagnosis Ketonuria- Primary Acetonuria UTI symptoms documented in this encounter Additional Health Concerns Assessment Noted Time PHQ-9 Depression Total Score: 7 09/10/19 25 10:37 AM EDT documented as of this encounter Care Teams Food Assembler Commissary Kitchen Relationship Specialty Start Date End Date Denisha Cardenas NP [address] [place] [id number] PCP - General Family Medicine 02/15/24 documented as of this encounter
--- OUTSIDE RECORDS SUMMARY | 2025-02-03 13:15 | XMS_ITS | Encounter Summary ---
Author Organization [employer] Address [address] [place] [address] [address] [place] [address] Care Team Providers Care Creative Services Specialist Name Role Phone Denisha Cardenas NP Primary Care Provider [phone] Reason for Visit * Reason Comments Follow-up Encounter Details Date Type Department Care Team ([facility] Contact Info) Description 02/03/2025 1:15 PM EDT Office Visit [facility] [address] [place] [address] Cecilia Blood, OD [address] [place] [address] Elevated IOP, bilateral (Primary Dx) Social History Tobacco Use Types Packs/Day Years [...] Description 03/06/2025 2:30 PM EDT Office Visit [facility] [address] [place] [address] Denisha Cardenas NP [address] [place] [address] documented as of this encounter Visit Diagnoses Diagnosis Elevated IOP, bilateral- Primary documented in this encounter Additional Health Concerns Assessment Noted Time PHQ-9 Depression Total Score: 7 09/10/19 25 10:37 AM EDT documented as of this encounter Care Teams Creative Services Specialist Relationship Specialty Start Date End Date Denisha Cardenas NP [address] [place] [address] PCP - General Family Medicine 02/15/24 documented as of this encounter
[2025-02-04 13:53] LABS: Appearance Urine Clear; Glucose Urine UA Negative (Negative); PH 5.5 (5.0-9.0); Specific Gravity - Urine 1.015 (1.005-1.025); UMIC TRIGGER UACC YES
--- OUTSIDE RECORDS SUMMARY | 2025-02-04 15:22 | XMS_ITS | Clinical Summary ---
Author Organization [facility] it[facility] Address [address] [place] [address] Care Team Providers Care Blend Plant Operator Name Role Phone Unavailable Primary Care Provider [...]
--- OUTSIDE RECORDS SUMMARY | 2025-02-04 15:22 | XMS_ITS | Encounter Summary ---
Author Organization [employer] Address [address] [facility] 7 [place] [address] Care Team Providers Care Manager Telemetry Name Role Phone Denisha Cardenas NP Primary Care Provider [phone] Encounter Details Date Type Department Care Team ([facility] st Contact Info) Description 02/03/2025 Results Follow-Up [facility] [address] [place], [place] [phone] Maylin Mensah, ANP [address] [place] [address] POCT urinalysis dipstick manually resulted, Culture, Urine, Routine Social History Tobacco Use Types Packs/Day Years [...] AM EDT documented as of this encounter Miscellaneous Notes * Telephone Encounter - Nikki Singh RN - 02/04/2025 8:25 AM EDT TC placed to pt who states she is still having symptoms pt will come in today for clean catch urineplease order lab, thank you ----- Message from Maylin Mensah sent at 02/03/2025 5:06 PM EDT ----- Hi - urine culture suggestive of contamination, if pt still w/ urinary sx recommend review clean catch protocol and repeat UA w/ cx. Let me know and I can re-order. thanks ----- Message ----- From: Kulwant Bain [place] Sent: 01/30/2025 8:57 AM EDT To: TAYLER Forde * Result Encounter Note - TAYLER Forde - 02/03/2025 5:06 PM EDT Hi - urine culture suggestive of contamination, if pt still w/ urinary sx recommend review clean catch protocol and repeat UA w/ cx. Let me know and I can re-order. thanks documented in this encounter Plan of Treatment Upcoming Encounters Date Type Department Care Team (Late st Contact Info) Description 03/06/2025 2:30 PM EDT Office Visit [facility] [address] [place] [address] Denisha Cardenas NP [address] [place] [address] documented as of this encounter Visit Diagnoses Not on filedocumented in this encounter Additional Health Concerns Assessment Noted Time PHQ-9 Depression Total Score: 7 09/10/19 25 10:37 AM EDT documented as of this encounter Care Teams Manager Telemetry Relationship Specialty Start Date End Date Denisha Cardenas NP [address] [place] [address] PCP - General Family Medicine 02/15/24 documented as of this encounter
--- OUTSIDE RECORDS SUMMARY | 2025-02-04 15:22 | XMS_ITS | Clinical Summary ---
Author Organization [employer] Address [address] [place] [address] [address], [place] [address] Care Team Providers Care Sales Representative Leather Goods Name Role Phone Denisha Cardenas NP Primary Care Provider [phone] Allergies Active Allergy Reactions Criticality Noted Date [...] organization. Date Type Department Care Team Description 02/03/2025 1:15 PM EDT Office Visit [facility] OPTOMETRY [address] [place] [phone] Cecilia Blood, OD Elevated IOP, bilateral (Primary Dx) 02/03/2025 Results Follow-Up [facility] MEDICINE [address] [place] [phone] Maylin Mensah ANP POCT urinalysis dipstick manually resulted, Culture, Urine, Routine 02/03/2025 Travel 01/30/2025 9:00 AM EDT Office Visit [facility] WALK-IN CENTER [address] [place] [address] Maylin Mensah ANP Ketonuria (Primary Dx); UTI symptoms 01/30/2025 Travel 01/20/2025 Patient Outreach [facility] MEDICINE [address] [place] [address] Denisha Cardenas NP Care Coordination (C3 CM-W [employer] telephone call graduate ) 01/20/2025 Patient Outreach [address] [address] Denisha Cardenas NP Care Coordination (C3 CM-[facility] Yumiko Ram telephone call outreach) 01/13/2025 Telephone [facility] [place] [address] Cecilia Blood OD 01/13/2025 Travel 12/17/2024 Patient Outreach [address] [address] Denisha Cardenas NP Care Management (C3CM- Follow up call/LVM) 11/19/2024 Patient Outreach [address] [address] Denisha Cardenas TILTROTOR CREW CHIEF Care Coordination 11/17/2024 2:45 PM EDT Office Visit [facility] OPTOMETRY [address] [place] [address] Skyler, Galina, OD Presbyopia (Primary Dx) 11/14/2024 4:00 PM EDT Office Visit [facility] MEDICINE [address] [place] [address] Denisha Cardenas NP Type 2 diabetes mellitus without complication, unspecified whether jail insulin use ([facility]) (Primary Dx); Right sciatic nerve pain 11/14/2024 Travel 11/12/2024 Patient Outreach [facility] MEDICINE [address] [place] [address] Denisha Cardenas NP 11/11/2024 Patient Outreach [address] [address] Denisha Cardenas NP Care Management ([facility]- Follow up call # 3) 11/07/2024 Patient Outreach [address] [address] Denisha Cardenas NP Care Coordination 11/04/[address] [address] Denisha Cardenas NP Seasonal allergic rhinitis due [...] Description 03/06/2025 2:30 PM EDT Office Visit [facility] MEDICINE [address] [place] [address] Denisha Cardenas NP [address] [place] [address] Health Maintenance Due Date Last Done Comments [...] Vaccines (1 of 2) 2016 COVID-19 Vaccine (1 - season) 2025 Influenza Vaccine (#1) 2025 Alcohol/Substance Use Screening 02/28/2025 02/29/2024 Diabetes: Hemoglobin A1C 07/30/2025 025, 10/06/2024, 02/15/2024 Depression Screening 09/09/2025 09/09/2024, 09/10/19 25 SDOH Screening 09/11/2025 09/11/2024 Lipid Panel 01/30/2026 01/30/2025, 02/15/2024 Eye Exam 02/03/2026 02/03/2025, 09/0 01/2025, 02/03/2025, Additional history exists Tobacco Screening 02/03/2026 02/03/2025 Mammogram 03/08/2026 03/08/2024 RSV Patients and Patients [...] 02/04/2025 12:25 PM EDT UTI symptoms Ketonuria LIPID PANEL, STANDARD Routine 01/30/2025 9:21 AM EDT Type 2 diabetes mellitus without complication, without long-term current use of insulin ([facility]) TSH W/REFLEX TO FT4 Routine 01/30/2025 9 :21 AM EDT Hypothyroidism, unspecified type HEMOGLOBIN A1C Routine 01/30/2025 9:21 AM EDT Hyperglycemia COMPREHENSIVE METABOLIC PANEL Routine 01/30/2025 9:21 AM EDT Hyperglycemia CULTURE, URINE, ROUTINE Routine 01/30/2025 8:59 AM EDT UTI symptoms POCT URINALYSIS DIPSTICK Routine 01/30/2025 8:56 AM EDT UTI symptoms POCT GLUCOSE Routine 11/14/2024 4:06 PM EDT Type 2 diabetes mellitus without complication, unspecified whether buttermaker continuous churn insulin use ([facility]) BI MAMMOGRAM SCREENING TOMOSYNTHESIS BILATERAL Routine 03/08/2024 Breast screening from Last 3 Months or Most Recently Relevant to Health Maintenance Results * (ABNORMAL) Urinalysis, Complete, with Reflex to Culture (02/04/2025 12:25 PM EDT) Color Urine Yellow [facility] Appearance Urine Clear [facility] PH 5.5 5.0 - 9.0 [facility] Glucose Urine UA Negative Negative mg/dL [facility] Urine Blood Negative Negative [facility] Specific Ivins - Urine 1.015 1.005 - 1.025 [facility] Urine Protein Negative Neg-Trace mg/dL [facility] Urine Ketones Negative Negative mg/dL [facility] Nitrite Urine Negative Negative [facility] Leukocyte Esterase Urine Trace(A) Negative [facility] RBC Urine 0-2 0 - 2 /HPF [facility] Urine WBC 0-5 0 - 5 /HPF [facility] Urine Squamous Epithelial Cell 0-2 0 - 2 /HPF [facility] Urine Bacteria None Seen None Seen [facility] Hyaline Casts, Urine 0-2 0 - 2 /LPF [facility] Urine 02/04/2025 12:2 5 PM EDT 02/04/2025 1:26 PM EDT Narrative [facility] - 02/04/2025 2:02 PM EDT Urine, Clean Catch us Maylin Mensah ANP LAB URINE ORDERABLES Final Resul t Performing Organization Address City/[facility] Co de Phone Number [facility] [address] [place] [phone] * TSH W/Reflex to FT4 (01/30/2025 9:21 AM EDT) TSH reflex Free T4 0.97 0.32 - 4.0 uIU/mL [facility] Blood Venous blood specimen / Unknown 01/30/2025 9:21 AM EDT 01/30/2025 11:13 AM EDT us Denisha Cardenas T[employer] CHIEF LAB BLOOD ORDERABLES Final Resul t Performing Organization Address [facility] Co de Phone Number [facility] [address] [place] [phone] * (ABNORMAL) Hemoglobin A1c (01/30/2025 9:21 AM EDT) Hemoglobin A1c 6.2(H) <6.0 % [facility] Comment:Hemoglobin A1C Refer ence Range Adults: 4.8 - 6.0 % Non diabetic: < 6.0 % Goal: < 7.0 %Additional Action Suggested: > 8.0 %Note: Hemoglobin A1c results are invalid for patients with abnormal amounts of HbF. Blood transfusions may impact the HbA1c concentration in the patient sample. Estimated Average Glucose 131 mg/dL [facility] Comment:eAG = Estimated ave rage glucose which is %A1C expressed asaverage glucose, using the formula of the Q3F-NopsqroRezsbws Glucose study (ADAG), Diabetes Care, Vol.31,#8,Dec. 2007 Blood Venous blood specimen / Unknown 01/30/2025 9:21 AM EDT 01/30/2025 11:13 AM EDT us Denisha Cardenas NP LAB BLOOD ORDERABLES Final Resul t [facility] [address] [place] [address] [phone] * (ABNORMAL) Lipid Panel, Standard (01/30/2025 9:21 AM EDT) Triglycerides 112 <150 mg/dL [facility] Comment:Desirable Triglyceri de: less than 150 mg/dLBorderline High Triglyceride 150-199 mg/dLHigh Triglyceride: 200-499 mg/dLVery High Triglyceride: greater than or equal to 5OO mg/dL Cholesterol 224(H) <200 mg/dL [facility] Comment:Desirable Cholestero l: less than 200 mg/dLBorderline High Cholesterol: 200-239 mg/dLHigh Cholesterol: greater than 239 mg/dL LDL Cholesterol Calculated 157(H) <100 mg/dL [facility] Comment:Desirable LDL: less than 100 mg/dLNear Optimal/Above Optimal LDL: 110- 129 mg/dLBorderline High LDL: 130-159 mg/dLHigh LDL: 160-189 mg/dLVery High LDL: greater than or equal to 190 mg/dL HDL Cholesterol 45 >40 mg/dL [facility] Comment:Desirable HDL: great er than 40 mg/dL Note: This HDL assay may give artificially low results in patients with liver disease. Blood Venous blood specimen / Unknown 01/30/2025 9:21 AM EDT 01/30/2025 11:13 AM EDT us Denisha Cardenas NP LAB BLOOD ORDERABLES Final Resul t [facility] [address] [place] [address] [phone] * (ABNORMAL) Comprehensive Metabolic Panel (01/30/2025 9:21 AM EDT) Sodium 141 135 - 145 mmol/L [facility] Potassium 4.1 3.3 - 5.1 mmol/L [facility] Chloride 109(H) 96 - 108 mmol/L [facility] Carbon Dioxide 26 22 - 29 mmol/L [facility] Anion Gap 10(L) 12 - 20 [facility] Urea Nitrogen (BUN) 10 9 - 16 mg/dL [facility] Creatinine, Serum 0.68 0.5 - 1.4 mg/dL [facility] Estimated Glomerular Filt Rate >60 [facility] Comment:Chronic Kidney Disea se: Estimated GFR < 60 mL/min/1.93t2Ejgmfn Kidney Disease: Estimated GFR < 15 mL/min/1.73m2 Glucose 99 60 - 115 mg/dL [facility] Calcium 9.1 8.4 - 10.2 mg/dL [facility] Bilirubin, Total 0.4 0.0 - 1.0 mg/dL [facility] Aspartate Amino Transferase 24 5 - 31 U/L [facility] Alanine Aminotransferase 14 0 - 31 U/L [facility] Total Protein 7.4 6.5 - 8.0 g/dL [facility] Albumin Level 4.1 3.5 - 5.0 g/dL [facility] Alkaline Phosphatase 69 39 - 117 U/L [facility] Blood Venous blood specimen / Unknown 01/30/2025 9:21 AM EDT 01/30/2025 11:13 AM EDT us Denisha Cardenas TILTROTOR CREW CHIEF LAB BLOOD ORDERABLES Final Resul t Performing Organization Address [facility]/ZIP Co de Phone Number [facility] [address] [place] [phone] * Culture, Urine, Routine (01/30/2025 8:59 AM EDT) Urine Urine specimen obtained by clean catch procedure / Unknown 01/30/2025 8:59 AM EDT 01/30/2025 4:39 PM EDT Comment:UACC Narrative [facility] - 02/01/2025 11:00 AM EDT Urine Culture Report Result Urine Culture 10,000 to 50,000 cfu/ml Urine Culture Mixed bacterial mahad characteristic of Urine Culture urogenital contamination. Specimen Source: Urine clean catch Maylin LESTER LAB MICROBIOLOGY - GENERAL ORDER ANIYAH Final Result Performing Organization Address [facility] Co de Phone Number [facility] [address] [place] [phone] * POCT urinalysis dipstick manually resulted [...] None Detected Urine 01/30/2025 8:56 AM EDT Maylin Mensah ANP POINT OF CARE TEST ENTER/EDIT OR DERABLES Final Result * POCT Glucose (11/14/2024 4:06 PM EDT) Glucose Blood, POC 123 60 - 200 mg/dL QC Media Lot # [id number] Lot# Expiration Date Blood Capillary blood specimen / Unknown 11/14/2024 4:06 PM EDT us Denisha Cardenas NP POINT OF CARE TEST ENTER/EDIT OR DERABLES Final Result * BI Mammogram Screening Tomosynthesis Bilateral (03/08/2024) Anatomical Region Laterality Modality Breast Bilateral Mammography us Denisha Cardenas [employer]IE[employer] IMG BI PROCEDURES Edited Result - Final from Last 3 Months or Most Recently Relevant to Health Maintenance [email or web address] Care Teams Sales Representative Leather Goods Relationship Specialty Start Date End Date Denisha Cardenas NP [address] [place] [phone] PCP - General Family Medicine 02/15/24
--- OUTSIDE RECORDS SUMMARY | 2025-02-04 15:22 | XMS_ITS | Encounter Summary ---
Author Organization [employer] Address [address] [facility] 7 [place] [address] Care Team Providers Care Aerospace Physiological Technician Name Role Phone Denisha Carednas NP Primary Care Provider Encounter Details Date Type Department Care Team (Latest Contact Info) Description 02/03/2025 Travel Social History Tobacco Use Types Packs/Day [...] Description 03/06/2025 2:30 PM EDT Office Visit [facility] MEDICINE [address] [place] [address] Denisha Cardenas NP [address] [place] [address] documented as of this encounter Visit Diagnoses Not on filedocumented in this encounter Additional Health Concerns Assessment Noted Time PHQ-9 Depression Total Score: 7 09/10/19 25 10:37 AM EDT documented as of this encounter Care Teams Aerospace Physiological Technician Relationship Specialty Start Date End Date Denisha Cardenas NP [address] [place] [address] PCP - General Family Medicine 02/15/24 documented as of this encounter
--- OUTSIDE RECORDS SUMMARY | 2025-02-04 15:22 | XMS_ITS | Encounter Summary ---
Author Organization [employer] Address [address] [facility] 7 [place] [address] Care Team Providers Care Yard Manager Name Role Phone Denisha Cardenas NP Primary Care Provider [phone] Encounter Details Date Type Department Care Team ([facility] st Contact Info) Description 10/14/2024 Orders Only [facility] MEDICINE [address] [place], [place] [phone] Emani Farmer MD [address] [place] [address] Social History Tobacco Use Types Packs/Day Years [...] Description 03/06/2025 2:30 PM EDT Office Visit [facility] MEDICINE [address] [place] [address] Denisha Cardenas NP [address] [place] [address] documented as of this encounter Visit Diagnoses Not on filedocumented in this encounter Additional Health Concerns Assessment Noted Time PHQ-9 Depression Total Score: 7 09/10/19 25 10:37 AM EDT documented as of this encounter Care Teams Yard Manager Relationship Specialty Start Date End Date Denisha Cardenas NP [address] [place] [address] PCP - General Family Medicine 02/15/24 documented as of this encounter
--- OUTSIDE RECORDS SUMMARY | 2025-02-04 15:22 | XMS_ITS | Encounter Summary ---
Author Organization [employer] Address [address] [facility] 7 [place] [address] Care Team Providers Care Metal Fitter Name Role Phone Denisha Cardenas NP Primary Care Provider [phone] Encounter Details Date Type Department Care Team [...] Description 03/06/2025 2:30 PM EDT Office Visit [facility] MEDICINE [address] [place] [address] Denisha Cardenas NP [address] [place] [address] documented as of this encounter Visit Diagnoses Not on filedocumented in this encounter Additional Health Concerns Assessment Noted Time PHQ-9 Depression Total Score: 7 09/10/19 25 10:37 AM EDT documented as of this encounter Care Teams Metal Fitter Relationship Specialty Start Date End Date Denisha Cardenas NP [address] [place] [address] PCP - General Family Medicine 02/15/24 documented as of this encounter
== END 2025-02-04 12:16 | disposition home or self-care (01) ==
LOC: HO.HHCL 12:15
PROVIDERS: PCP Nurse Practitioner Family; Referring Provider Nurse Practitioner Primary Care; Visit Provider Nurse Practitioner Family
DX: R82.4 Acetonuria (principal); R39.9 Unspecified symptoms and signs involving the genitourinary system
CPT/HCPCS: 81001

== ENCOUNTER 2025-03-18 09:20 | Outpatient (REF) | payer MEDICAID, SELFPAY ==
--- NOTE | ~2025-03-18 | XR_ITS ---
EXAMINATION: X-ray lumbar spine CLINICAL INFORMATION: Lumbar radiculopathy COMPARISON: None TECHNIQUE: 5 views FINDINGS: Minimal levoconvex curvature. Vertebral body heights are maintained. No evidence of acute fracture or spondylolisthesis. Mild L5-S1 disc degeneration. Mild facet degeneration in the lower lumbar spine. No suspicious lytic or blastic lesion. SI joints are symmetric. Small endplate osteophytes in the visualized lower thoracic spine. No abnormal soft tissue calcification. XR/XR lumbar spine 4V min IMPRESSION: No radiographic evidence of acute osseous findings. Mild lumbar spondylosis. Electronically signed by: Sebastian Yen MD 03/18/2025 10:16 AM EDT
--- OUTSIDE RECORDS SUMMARY | 2025-03-18 10:30 | XMS_ITS | Clinical Summary ---
Author Organization [facility] Address [address] [place] [address] Care Team Providers Care Kiss Machine Operator Name Role Phone Unavailable Primary Care [...] Last Done Comments Breast Cancer Screening 1966 Colorectal Cancer Screening: Colonoscopy 1966 DTaP,Tdap,and Td Vaccines (1 - Tdap) 1985 Hepatitis B Vaccines (1 of 3 - 19+ 3-dose series) 1985 Cervical Cancer Screening: P ap Smear 1987 Pneumococcal Vaccine: 50+ Ye ars (1 of 1 - PCV) 2016 Zoster Vaccines (1 of 2) 2016 HIV Screening 03/05/2024 Hepatitis C Screening 03/05/2024 Social Influencers of Health Screening 03/05/2024 Depression Screening 05/28/2024 COVID-19 Vaccine (1 - 2023-2 5 season) 2025 Influenza Vaccine (#1) 2025 RSV Immunization Adult Patie nts (1 - 1-dose 75+ series) 2041 HIB [...]
--- OUTSIDE RECORDS SUMMARY | 2025-03-18 10:30 | XMS_ITS | Encounter Summary ---
Author Organization [employer] Address [address] [facility] 7 [place] [address] Care Team Providers Care Room Cooler Installer Name Role Phone Denisha Cardenas NP Primary Care Provider [phone] Reason for Visit * Reason Onset Date Comments Nurse Triage 02/06/2025 Encounter Details Date Type Department Care Team ([facility] st Contact Info) Description 02/06/2025 Telephone [facility] MEDICINE [address] [place], [place] [phone] Denisha Cardenas NP [address] [place] [address] Nurse Triage Social History Tobacco Use Types Packs/Day Years [...] encounter Miscellaneous Notes * Telephone Encounter - Erica Aguilar RN - 02/06/2025 10:40 AM EDT Call returned to Gerry Bright to triage below at [phone]. Reports was going to be referred to another provider for continuing Psych prescriber. Pt was getting klonopin and Zoloft. [facility] but did not contact [facility] after his departure for follow up on Prescriber referral. Pt states had bad panic attack yesterday. Pt has been without meds x over 1 month. Pt PCP Theresa out of office. Pt agrees to sick visit today to discuss med options and for [facility] consult. Protocol Used: Anxiety and Panic Attack (Adult) Protocol-Based Disposition: See in Office or Video Visit within 3 Days Future Appointments Date Time Provider Department Center 02/06/2025 1:45 PM Emani Farmer MD MEDICINE [facility] 03/06/2025 2:30 PM Denisha Cardenas NP MEDICINE [facility] Insurance verified as active per Real Time Eligibility in [facility]. Video visit offer not recorded Positive Triage Question: * Moderate anxiety (e.g., persistent or frequent anxiety symptoms; interferes with sleep, school, or work) * All higher-acuity triage questions were negative Care Advice Discussed: * Avoid Caffeine * Avoid Triggers of Anxiety * Stress Reduction * Reasons To Call Back - Anxiety or panic attacks continue - You feel like harming yourself - You become worse * Telephone Encounter - Amol Albert - 02/06/2025 10:27 AM EDT Symptom: Anxiety or Panic Attack Outcome: Schedule an urgent appointment (within 4 hours) or talk to a nurse or provider soon Reason: Anxiety keeps from normal daily activities (such as school or work) Please contact pt at [phone]. (Upper Sorbian Speaker) documented in this encounter Plan of Treatment Not on file documented as of this encounter Visit Diagnoses Not on filedocumented in this encounter Additional Health Concerns Assessment Noted Time PHQ-9 Depression Total Score: 7 09/10/19 25 10:37 AM EDT documented as of this encounter Care Teams Room Cooler Installer Relationship Specialty Start Date End Date Denisha Cardenas NP [address] [place] [phone] PCP - General Family Medicine 02/15/24 documented as of this encounter
--- OUTSIDE RECORDS SUMMARY | 2025-03-18 10:30 | XMS_ITS | Encounter Summary ---
Author Organization [employer] Address [address] [facility] 7 [place] [address] Care Team Providers Care Residential Advisor Name Role Phone Denisha Cardenas NP Primary Care Provider [phone] Encounter Details Date Type Department Care Team ([facility] st Contact Info) Description 02/03/2025 Results Follow-Up [facility] MEDICINE [address] [place], [place] [phone] Maylin Mensah ANP [address] [place] [address] POCT urinalysis dipstick manually resulted, Culture, Urine, [...] documented as of this encounter Care Teams Residential Advisor Relationship Specialty Start Date End Date Denisha Cardenas NP [address] [place] [address] PCP - General Family Medicine 02/15/24 documented as of this encounter
--- OUTSIDE RECORDS SUMMARY | 2025-03-18 10:30 | XMS_ITS | Encounter Summary ---
Author Organization [employer] Address [address] [facility] 7t [place] [address] Care Team Providers Care Baseball Club Manager Name Role Phone Denisha Cardenas NP Primary Care Provider [phone] Encounter Details Date Type Department Care Team ([facility] st Contact Info) Description 10/14/2024 Orders Only [facility] MEDICINE [address] [place], [place] [phone] Emani Farmer MD [address] [place] [address] Social History Tobacco Use Types Packs/Day Years [...] as of this encounter Plan of Treatment Not on file documented as of this encounter Visit Diagnoses Not on filedocumented in this encounter Additional Health Concerns Assessment Noted Time PHQ-9 Depression Total Score: 7 09/10/19 25 10:37 AM EDT documented as of this encounter Care Teams Baseball Club Manager Relationship Specialty Start Date End Date Denisha Cardenas NP [address] [place] [address] PCP - General Family Medicine 02/15/24 documented as of this encounter
--- OUTSIDE RECORDS SUMMARY | 2025-03-18 10:30 | XMS_ITS | Clinical Summary ---
Author Organization [facility] Address [address] [place] [address] [address] [place] [address] Care Team Providers Care Etl Consultant Name Role Phone Denisha Cardenas NP Primary Care Provider [phone] Allergies Active Allergy Reactions Criticality Noted Date Comments Dexamethasone Rash Low 04/11/2024 Ketorolac Tromethamine Rash Low 04/11/2024 Shellfish Allergy 02/15/2024 Other Reaction(s): swelling, itching Medications * This document contains information received from the source organization and may not represent a complete record from that organization. levothyroxine (Synthroid) 25 MCG tablet Take 1 tablet (25 mcg) by mouth before breakfast. 90 tablet 3 03/28/20 24 025 Active Ketotifen Fumarate 0.035 % solutionIndica tions:Seasonal allergic rhinitis due to pollen Administer 1 drop into affected eye(s) 2 times daily. 10 mL 2 10/07/19 25 Active cromolyn (Nasachrom) 5.2 MG/ACT nasal spray Administer 1 spray into each nostril 4 times daily. 26 mL 12 10/15/19 25 026 Active pantoprazole (ProtoNix) 40 MG EC tablet TAKE 1 TABLET BY MOUTH BEFORE BREAKFAST. DO NOT CRUSH, CHEW OR SPLIT. 90 tablet 1 10/23/19 25 Active hydrOXYzine pamoate (Vistaril) 25 MG capsuleIndicat ions:JIMBO (generalized anxiety disorder) Take 1 capsule (25 mg) by mouth if needed in the morning and at bedtime for anxiety. May take the 2 caps at hs. Do not start before November 08, 2024. 30 capsule 1 11/09/19 25 Active cyclobenzaprin e (Flexeril) 10 MG tabletIndicati ons:Right sciatic nerve pain Take 1 tablet (10 mg) by mouth if needed at bedtime for muscle spasms for up to 10 days. 30 tablet 11/15/19 25 Active fluticasone (Flonase) 50 MCG/ACT nasal spray PLEASE SEE ATTACHED FOR DETAILED DIRECTIONS 10/23/19 25 Active GaviLAX 17 GM/SCOOP powder PLEASE SEE ATTACHED FOR DETAILED DIRECTIONS 11/04/19 25 Active sertraline (Zoloft) 100 MG tabletIndicati ons:Anxiety Take 1 tablet (100 mg) by mouth in the morning. 90 tablet 1 02/07/20 25 025 Active clonazePAM (KlonoPIN) 0.5 MG tabletIndicati ons:JIMBO (generalized anxiety disorder) Take 1 tablet (0.5 mg) by mouth if needed each day for anxiety (as needed for panic). 30 tablet 02/07/20 25 Active loratadine (Claritin) 10 MG tabletIndicati ons:Seasonal allergic rhinitis due to pollen TAKE 1 TABLET (10 MG) BY MOUTH ONCE PER DAY. 90 tablet 02/10/20 25 Active losartan (Cozaar) 50 MG tablet TAKE 1 TABLET BY MOUTH EVERY DAY 90 tablet 1 02/18/20 25 Active losartan (Cozaar) 50 MG tablet TAKE 1 TABLET BY MOUTH EVERY DAY 90 tablet 09/09/19 25 025 Discontinued Active Problems Problem Noted Date Diagnosed Date Type 2 diabetes mellitus wit hout complication, without long-term current use of insulin 03/06/2025 Assessment & Plan (03/06/2025 3:19 PM EDT): Orders: POCT Glucose Lumbar radiculopathy 03/06/2025 Assessment & Plan (03/06/2025 3:19 PM EDT): Orders: XR Lumbar Spine Complete 4+ Views; Future Referral to Physiatry; Future Constipation 02/06/2025 Right sciatic nerve pain 11/14/2024 Assessment & [...] major depressive disorder, without psychotic features (CMS/HCC) 05/26/2024 Chronic right shoulder pain 05/26/2024 Assessment [...] (generalized anxiety disorder) 02/15/2024 Assessment & Plan (02/09/2025 1:52 PM EDT): Anxiety: - Anxiety exacerbation due to abrupt discontinuation of medication. Panic attacks reported. No current pharmacologic treatment. - Prescribed sertraline 100 mg, with option to restart at 50 mg for one week before increasing to 100 mg. Prescribed clonazepam for acute anxiety symptoms and panic attacks. Advised to take clonazepam at onset of anxiety symptoms such as tremors, palpitations, or gastrointestinal discomfort. Encouraged continuation of psychotherapy and use of natural remedies as adjuncts. - Risks and side effects: Discussed potential for side effects with sertraline, including that some individuals may tolerate 100 mg without issue, while others may experience side effects if started at full dose. JIMBO (generalized anxiety disorder): - JIMBO confirmed, currently uncontrolled due to lack of medication. - Restart sertraline and clonazepam as prescribed. Continue psychotherapy and breathing exercises. Option to use natural supplements and herbal teas as adjunctive therapy. Assessment & Plan (02/15/2024 6:05 PM EDT): [...] organization. Date Type Department Care Team Description 03/06/2025 2:30 PM EDT Office Visit [facility] [address] [place] [address] Denisha Cardenas NP Lumbar radiculopathy (Primary Dx); Type 2 diabetes mellitus without complication, without long-term current use of insulin (HCC) 03/06/2025 Travel 03/05/2025 Telephone [facility] [address] [place] [address] Denisha Cardenas NP Chart Prep 02/16/2025 Refill [facility] [address] [place] [phone] Denisha Cardenas NP 02/08/[address] [address] Denisha Cardenas NP Seasonal allergic rhinitis due to pollen 02/06/2025 1:45 PM EDT Office Visit [facility] [address] [place] [phone] Emani Farmer MD Anxiety; JIMBO (generalized anxiety disorder) 02/06/2025 Travel 02/06/2025 Telephone [facility] [address] [place] [phone] Denisha Cardenas NP Nurse Triage 02/03/2025 1:15 PM EDT Office Visit [facility] [address] [place] [address] Tarka, Cecilia, OD Elevated IOP, bilateral (Primary Dx) 02/03/2025 Results Follow-Up [facility] [address] [place] [phone] Maylin Mensah ANP POCT urinalysis dipstick manually resulted, Culture, Urine, Routine 02/03/2025 Travel 01/30/2025 9:00 AM EDT Office Visit [facility] [address] [place] [phone] Maylin Mensah ANP Ketonuria (Primary Dx); UTI symptoms 01/30/2025 Travel 01/20/2025 Patient Outreach [facility] [address] [place] [phone] Denisha Cardenas NP Care Coordination (C3 -Gardenia Ram telephone call graduate ) 01/20/2025 Patient Outreach [facility] [address] [place] [address] Denisha Cardenas NP Care Coordination (C3 [facility] Yumiko Ram telephone call outreach) 01/13/2025 Telephone [facility] [address] [place] [address] Cecilia Blood, OD 01/13/2025 Travel 12/17/2024 Patient Outreach [facility] [address] [place] [address] Denisha Cardenas NP Care Management (C3CM- Follow up call/LVM) from Last 3 Months Family History Medical [...] Answer Date Recorded Patient Health Questionnaire-9 Score 12 03/06/2025 Patient Health Questionnaire-9 Score 12 03/06/2025 Last PHQ-9: Questionnaire Data Not on file 1 Housing Stability Answer Date Recorded What is [...] Answer Date Recorded Patient Health Questionnaire-2 Score 4 03/06/2025 Internet Access Answer Date Recorded Internet Access [...] Sign Reading Time Taken Comments Blood Pressure 124/80 03/06/2025 2:44 PM EDT Pulse 60 03/06/2025 2:44 PM EDT Temperature 36.6 C (97.8 F) 03/06/2025 2:44 PM EDT Respiratory Rate 20 03/06/2025 2:44 PM EDT Oxygen Saturation 97% 01/30/2025 8:51 AM EDT Inhaled Oxygen Concentration - - Weight 103 kg (226 lb) 03/06/2025 2:44 PM EDT Height 160 cm (5' 3 ) 03/06/2025 2:44 PM EDT Body Mass Index 40.03 03/06/2025 2:44 PM EDT Plan of Treatment Health Maintenance Due Date Last Done Comments CT Colonography 1966 Colonoscopy 1966 Colorectal Cancer Screening 1966 FIT DNA/Cologuard 1966 FIT 1966 FOBT 1965 HIV Screening 1966 Sigmoidoscopy 1966 Diabetes: Foot Exam 1976 Hepatitis C [...] - season) 2025 Influenza Vaccine (#1) 2025 Diabetes: Hemoglobin A1C 07/30/2025 025, 10/06/2024, 02/15/2024 Depression Monitoring 09/04/2025 03/06/2025, 025 SDOH Screening 09/11/2025 09/11/2024 Lipid Panel 01/30/2026 01/30/2025, 02/15/2024 Eye Exam 02/03/2026 02/03/2025, 01/2025, 02/03/2025, Additional history exists Alcohol/Substance Use Screening 03/06/2026 03/06/2025 Disability Screening 03/06/2026 03/06/2025 Tobacco Screening 03/06/2026 03/06/2025 Mammogram 03/08/2026 03/08/2024 RSV Patients and Patients [...] Procedure Name Priority Date/Time Associated Diagnosis Comments XR LUMBAR SPINE COMPLETE 4+ VIEWS Routine 03/18/2025 10:02 AM EDT Lumbar radiculopathy POCT GLUCOSE Routine 03/06/2025 2:46 PM EDT Type 2 diabetes mellitus without complication, without long-term current use of insulin (HCC) URINALYSIS, COMPLETE, WITH REFLEX TO CULTURE Routine 02/04/2025 12:25 PM EDT UTI symptoms Ketonuria LIPID PANEL, STANDARD Routine 01/30/2025 9:21 AM EDT Type 2 diabetes mellitus without complication, without long-term current use of insulin ([facility]) TSH W/REFLEX TO FT4 Routine 01/30/2025 9 :21 AM EDT Hypothyroidism, unspecified type HEMOGLOBIN A1C Routine 01/30/2025 9:21 AM EDT Hyperglycemia COMPREHENSIVE METABOLIC PANEL Routine 01/30/2025 9:21 AM EDT Hyperglycemia CULTURE, URINE, ROUTINE Routine 01/30/2025 8:59 AM EDT UTI symptoms POCT URINALYSIS DIPSTICK Routine 01/30/2025 8:56 AM EDT UTI symptoms BI MAMMOGRAM SCREENING TOMOSYNTHESIS BILATERAL Routine 03/08/2024 Breast screening from Last 3 Months or Most Recently Relevant to Health Maintenance Results * XR Lumbar Spine Complete 4+ Views (03/18/2025 10:02 AM EDT) Anatomical Region Laterality Modality Spine, L-spine Radiographic Sultana ging 03/18/2025 10:0 2 AM EDT Narrative 03/18/2025 10:19 AM EDT [place] [address] XRay Report Signed Patient: Gerry Milner MR#: [id number] : 1965 Acct:[id number] Age/Sex: 59 / F ADM Date: 03/18/25 Loc: [facility] Attending Dr: Denisha Cardenas NP Ordering Physician: Denisha Cardenas NP Date of Service: 03/18/25 Procedure(s): XR lumbar spine 4V min Accession Number(s): [id number] cc: Denisha Cardenas NP Reason for Exam: lumbar radiculopathy. no known trauma EXAMINATION: X-ray lumbar spine CLINICAL INFORMATION: Lumbar radiculopathy COMPARISON: None TECHNIQUE: 5 views FINDINGS: Minimal levoconvex curvature. Vertebral body heights are maintained. No evidence of acute fracture or spondylolisthesis. Mild L5-S1 disc degeneration. Mild facet degeneration in the lower lumbar spine. No suspicious lytic or blastic lesion. SI joints are symmetric. Small endplate osteophytes in the visualized lower thoracic spine. No abnormal soft tissue calcification. XR/XR lumbar spine 4V min IMPRESSION: No radiographic evidence of acute osseous findings. Mild lumbar spondylosis. Electronically signed by: Sebastian Yen MD 03/18/2025 10:16 AM EDT Dictated By: Sebastian Yen MD Signed By: <Electronically signed by Sebastian Yen MD in OV> 03/18/25 1016 DD/ 1002 TD/TT: 03/18/25 1008 Lens Assorter: MIKAL Procedure Note Donotuseinterpreter, Image - 03/18/2025 [place] [address] XRay Report Signed Patient: Gerry Milner JMR#: [id number] : 1965Acct:[id number] Age/Sex: 59 / FADM Date: 03/18/25 Loc: [facility] Attending Dr: Denisha Cardenas NP Ordering Physician: Denisha Cardenas NP Date of Service: 03/18/25 Procedure(s): XR lumbar spine 4V min Accession Number(s): [id number] cc: Denisha Cardenas NP Reason for Exam: lumbar radiculopathy. no known trauma EXAMINATION: X-ray lumbar spine CLINICAL INFORMATION: Lumbar radiculopathy COMPARISON: None TECHNIQUE: 5 views FINDINGS: Minimal levoconvex curvature. Vertebral body heights are maintained. No evidence of acute fracture or spondylolisthesis. Mild L5-S1 disc degeneration. Mild facet degeneration in the lower lumbar spine. No suspicious lytic or blastic lesion. SI joints are symmetric. Small endplate osteophytes in the visualized lower thoracic spine. No abnormal soft tissue calcification. XR/XR lumbar spine 4V min IMPRESSION: No radiographic evidence of acute osseous findings. Mild lumbar spondylosis. Electronically signed by: Sebastian Yen MD 03/18/2025 10:16 AM EDT RP Dictated By: Sebastian Yen MD Signed By: <Electronically signed by Sebastian Yen MD in OV> 03/18/25 1016 DD/ 1002 TD/TT: 03/18/25 1008 Lens Assorter: MIKAL Denisha Cardenas BARREL RACER IMG XR PROCEDURES Final Result * POCT Glucose (03/06/2025 2:46 PM EDT) Glucose Blood, POC 163 60 - 200 mg/dL QC Media Lot # [id number] Lot# Expiration Date Blood Capillary blood specimen / Unknown 03/06/2025 2:46 PM EDT us Denisha Cardenas NP POINT OF CARE TEST ENTER/EDIT OR DERABLES Final Result * (ABNORMAL) Urinalysis, Complete, with Reflex to Culture (02/04/2025 12:25 PM EDT) Color Urine Yellow [facility] Appearance Urine Clear [facility] PH 5.5 5.0 - 9.0 [facility] Glucose Urine UA Negative Negative mg/dL [facility] Urine Blood Negative Negative [facility] Specific [place] - Urine 1.015 1.005 - 1.025 [facility] Urine Protein Negative Neg-Trace mg/dL [facility] Urine Ketones Negative Negative mg/dL [facility] Nitrite Urine Negative Negative [facility] Leukocyte Esterase Urine Trace(A) Negative [facility] RBC Urine 0-2 0 - 2 /HPF [facility] Urine WBC 0-5 0 - 5 /HPF [facility] Urine Squamous Epithelial Cell 0-2 0 - 2 /HPF [facility] Urine Bacteria None Seen None Seen [facility] Hyaline Casts, Urine 0-2 0 - 2 /LPF [facility] Urine 02/04/2025 12:2 5 PM EDT 02/04/2025 1:26 PM EDT Narrative [facility] - 02/04/2025 2:02 PM EDT Urine, Clean Catch Maylin Mensah ANP LAB URINE ORDERABLES Final Resul t Performing Organization Address [facility] [address]/[facility] Co de Phone Number [facility] [address] [place] [phone] * TSH W/Reflex to FT4 (01/30/2025 9:21 AM EDT) TSH reflex Free T4 0.97 0.32 - 4.0 uIU/mL [facility] Blood Venous blood specimen / Unknown 01/30/2025 9:21 AM EDT 01/30/2025 11:13 AM EDT Denisha Cardenas BARREL RACER LAB BLOOD ORDERABLES Final Resul t Performing Organization Address [facility] [address]/[facility] Co de Phone Number [facility] [address] [place] [phone] * (ABNORMAL) Hemoglobin A1c (01/30/2025 9:21 AM EDT) Hemoglobin A1c 6.2(H) <6.0 % [facility] Comment:Hemoglobin A1C Refer ence Range Adults: 4.8 - 6.0 % Non diabetic: < 6.0 % Goal: < 7.0 %Additional Action Suggested: > 8.0 %Note: Hemoglobin A1c results are invalid for patients with abnormal amounts of HbF. Blood transfusions may impact the HbA1c concentration in the patient sample. Estimated Average Glucose 131 mg/dL [facility] Comment:eAG = Estimated ave rage glucose which is %A1C expressed asaverage glucose, using the formula of the [id number] Glucose study (ADAG), Diabetes Care, Vol.31,#8,Dec. 2007 Blood Venous blood specimen / Unknown 01/30/2025 9:21 AM EDT 01/30/2025 11:13 AM EDT Denisha Cardenas BARREL RACER LAB BLOOD ORDERABLES Final Resul t Performing Organization Address [facility] [address]/[facility] Co de Phone Number [facility] [address] [place] [address] [phone] * (ABNORMAL) Lipid Panel, Standard (01/30/2025 9:21 AM EDT) Triglycerides 112 <150 mg/dL [facility] Comment:Desirable Triglyceri de: less than 150 mg/dLBorderline High Triglyceride 150-199 mg/dLHigh Triglyceride: 200-499 mg/dLVery High Triglyceride: greater than or equal to 5OO mg/dL Cholesterol 224(H) <200 mg/dL [facility] Comment:Desirable Cholestero l: less than 200 mg/dLBorderline High Cholesterol: 200-239 mg/dLHigh Cholesterol: greater than 239 mg/dL LDL Cholesterol Calculated 157(H) <100 mg/dL [facility] Comment:Desirable LDL: less than 100 mg/dLNear Optimal/Above Optimal LDL: 110- 129 mg/dLBorderline High LDL: 130-159 mg/dLHigh LDL: 160-189 mg/dLVery High LDL: greater than or equal to 190 mg/dL HDL Cholesterol 45 >40 mg/dL [facility] Comment:Desirable HDL: great er than 40 mg/dL Note: This HDL assay may give artificially low results in patients with liver disease. Blood Venous blood specimen / Unknown 01/30/2025 9:21 AM EDT 01/30/2025 11:13 AM EDT us Denisha Cardenas BARREL RACER LAB BLOOD ORDERABLES Final Resul t Performing Organization Address [facility] [address]/ZIP Co de Phone Number [facility] [address] [place] [address] [phone] * (ABNORMAL) Comprehensive Metabolic Panel (01/30/2025 9:21 AM EDT) Sodium 141 135 - 145 mmol/L [facility] Potassium 4.1 3.3 - 5.1 mmol/L [facility] Chloride 109(H) 96 - 108 mmol/L [facility] Carbon Dioxide 26 22 - 29 mmol/L [facility] Anion Gap 10(L) 12 - 20 [facility] Urea Nitrogen (BUN) 10 9 - 16 mg/dL [facility] Creatinine, Serum 0.68 0.5 - 1.4 mg/dL [facility] Estimated Glomerular Filt Rate >60 [facility] Comment:Chronic Kidney Disea se: Estimated GFR < 60 mL/min/[id number] Kidney Disease: Estimated GFR < 15 mL/min/1.73m2 Glucose 99 60 - 115 mg/dL [facility] Calcium 9.1 8.4 - 10.2 mg/dL [facility] Bilirubin, Total 0.4 0.0 - 1.0 mg/dL [facility] Aspartate Amino Transferase 24 5 - 31 U/L [facility] Alanine Aminotransferase 14 0 - 31 U/L [facility] Total Protein 7.4 6.5 - 8.0 g/dL [facility] Albumin Level 4.1 3.5 - 5.0 g/dL [facility] Alkaline Phosphatase 69 39 - 117 U/L [facility] Blood Venous blood specimen / Unknown 01/30/2025 9:21 AM EDT 01/30/2025 11:13 AM EDT us Denisha Cardenas NP LAB BLOOD ORDERABLES Final Resul t [facility] [address] [place] [phone] * Culture, Urine, Routine (01/30/2025 8:59 AM EDT) Urine Urine specimen obtained by clean catch procedure / Unknown 01/30/2025 8:59 AM EDT 01/30/2025 4:39 PM EDT Comment:UACC Narrative [facility] - 02/01/2025 11:00 AM EDT Urine Culture Report Result Urine Culture 10,000 to 50,000 cfu/ml Urine Culture Mixed bacterial mahad characteristic of Urine Culture urogenital contamination. Specimen Source: Urine clean catch Maylin Mensah ANP LAB MICROBIOLOGY - GENERAL ORDER ANIYAH Final Result [facility] [address] [place] [address] [phone] * POCT urinalysis dipstick manually resulted [...] Laterality Modality Breast Bilateral Mammography Denisha Cardenas NP IMG BI PROCEDURES Edited Result - Final from Last 3 Months or Most Recently Relevant to Health Maintenance Insurance C3 Care Teams Etl Consultant Relationship Specialty Start Date End Date Denisha Cardenas NP [address] [place] [phone] PCP - General Family Medicine 02/15/24
== END 2025-03-18 09:21 | disposition home or self-care (01) ==
LOC: HO.XRAY 09:20
PROVIDERS: PCP Nurse Practitioner Family; Visit Provider Nurse Practitioner Family
DX: M54.16 Radiculopathy, lumbar region (principal)
CPT/HCPCS: 72110

== ENCOUNTER → 2025-03-18 09:26 | Outpatient (BNV) | payer MEDICAID, SELFPAY | PROVIDERS: PCP Nurse Practitioner Family; Visit Provider Radiology Diagnostic Ultrasound | DX: M54.16 Radiculopathy, lumbar region (principal); M47.816 Spondylosis without myelopathy or radiculopathy, lumbar region | CPT/HCPCS: 72110 ==

== ENCOUNTER 2025-04-02 18:04 | Outpatient (REF) | payer MEDICAID, SELFPAY ==
--- OUTSIDE RECORDS SUMMARY | 2025-03-30 09:00 | XMS_ITS | Encounter Summary ---
Author Organization [employer] Address [address] [facility] 7 [place] [address] Care Team Providers Care Edge Dyer Name Role Phone Denisha Cardenas NP Primary Care Provider [phone] Reason for Visit * Reason Comments Back Pain C/O back pain that r adiates to the pelvis. Pt complains of urinary frequency and dysuria Encounter Details Date Type Department Care Team (Late st Contact Info) Description 03/30/2025 9:00 AM EST Office Visit [facility] [address] [place] [phone] Eevlia Dickinson MD [address] [place] [address] Slow transit constipation (Primary Dx) Social History Tobacco Use Types [...] your housing situation today? I have sia philip 02/15/[address] you li [...] Sign Reading Time Taken Comments Blood Pressure 122/76 03/30/2025 9:04 AM EST Pulse 68 03/30/2025 9:04 AM EST Temperature 36.6 C (97.8 F) 03/30/2025 9:04 AM EST Respiratory Rate 14 03/30/2025 9:04 AM EST Oxygen Saturation - - Inhaled Oxygen Concentration - - Weight 102 kg (224 lb 3.2 oz) 03/30/2025 9:04 AM EST Height 160 cm (5' 3 ) 03/30/2025 9:04 AM EST Body Mass Index 39.72 03/30/2025 9:04 AM EST documented in this encounter Progress Notes * Evelia Dickinson MD - 03/30/2025 9:00 AM EST SUBJECTIVE: Gerry Bright is a 59 y.o. year old female who presents for [facility]/lbp. Denies recent illness, injury, or hospitalization. Constipation and Abdominal Discomfort Had chronic difficulty with bowel movements, usually evacuates daily but always with effort. Onset of increased symptoms began the night before the visit, with sensation of fullness and pressure fromthe lower abdomenradiated to her back. Last bowel movement occurred yesterday, stool was softer than usual, with mucus and greasy consistency, but denies diarrhea. Denies fever, chills, malaise, or blood in urine. No burning or pain with urination, urine remains normal in color and concentration. History of hysterectomy and menopause noted. Social History Social History Narrative Not on file Problem List[1] Family History[2] Review of Systems Constitutional: Negative for chills, fatigue and fever. HENT: Negative for congestion, ear pain, nosebleeds, rhinorrhea, sinus pressure, sore throat and trouble swallowing. Eyes: Negative for pain and discharge. Respiratory: Negative for cough, chest tightness and shortness of breath. Cardiovascular: Negative for chest pain, palpitations and leg swelling. Gastrointestinal: Positive for abdominal pain and constipation. Negative for blood in stool, diarrhea and nausea. Endocrine: Negative for polydipsia and polyuria. Genitourinary: Positive for pelvic pain. Negative for dysuria, frequency, genital sores and vaginaldischarge. Musculoskeletal: Positive for back pain. Negative for neck pain. Skin: Negative for rash. Allergic/Immunologic: Negative for environmental allergies. Neurological: Negative for dizziness, seizures, weakness, light-headedness and headaches. Hematological: Negative for adenopathy. Psychiatric/Behavioral: Negative for agitation, behavioral problems, self-injury and suicidal ideas. OBJECTIVE: Vitals: 03/30/25 0904 BP: 122/76 Pulse: 68 Resp: 14 Temp: 97.8 ??F (36.6 ??C) Physical Exam HENT: Right Ear: Tympanic membrane and ear canal normal. Left Ear: Tympanic membrane and ear canal normal. Mouth/Throat: Mouth: Mucous membranes are moist. Pharynx: No oropharyngeal exudate or posterior oropharyngeal erythema. Eyes: Pupils: Pupils are equal, round, and reactive to light. Cardiovascular: Rate and Rhythm: Regular rhythm. Pulses: Normal pulses. Heart sounds: Normal heart sounds. No murmur heard. Pulmonary: Breath sounds: Normal breath sounds. Abdominal: General: Bowel sounds are normal. Palpations: Abdomen is soft. Tenderness: There is no abdominal tenderness. Musculoskeletal: General: Normal range of motion. Cervical back: Neck supple. Skin: General: Skin is warm. Neurological: General: No focal deficit present. Mental Status: She is alert and oriented to person, place, and time. Psychiatric: Mood and Affect: Mood normal. Behavior: Behavior normal. Problem List Items Addressed This Visit Constipation - Primary No evidence of urinary tract infection; LUT symptoms attributed to colonic distension and irritation. - Prescribed pyridium for symptomatic relief of LUTS, Advised that pyridium may cause dark urine and possible staining of undergarments. - Prescribed docusate to be taken twice daily. - Prescribed liquid Gavilax to be taken at night or as needed PRN constipation > 1d. - Dietary recommendations include increased water intake, consumption of fruits such as, pears, bananas, prunes, and avoidance of rice, bread, potatoes, red meat, and processed foods. Encouraged ambulation. Offered option of bisacodyl suppository if needed, to call prn. Relevant Medications GaviLAX 17 GM/SCOOP powder docusate sodium (Colace) 100 MG capsule Other Relevant Orders POCT Urinalysis (Completed) This note was drafted using Ambient (AI) technology. 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 JIMBO (generalized anxiety disorder) Presence of implantable pulmonary artery pressure and heart rate monitoring system Syncope Cardiac arrhythmia Pre-diabetes Elevated lipoprotein(a) Rotator cuff arthropathy, right Breast screening Irritable bowel syndrome with both constipation and diarrhea Anxiety Vertigo Severe episode of recurrent major depressive disorder, without psychotic features (CMS/HCC) (HCC) Chronic right shoulder pain Gastroesophageal reflux disease Obesity (BMI 35.0-39.9 without comorbidity) Symptomatic varicose veins of right lower extremity Health maintenance alteration Panic Dietary counseling Exercise counseling Hyperglycemia Hypothyroidism Seasonal allergic rhinitis due to pollen Right sciatic nerve pain Constipation Type 2 diabetes mellitus without complication, without long-term current use of insulin (HCC) Lumbar radiculopathy [2] Family History Problem Relation Name Age of Onset Glaucoma Mother Diabetes Mother Diabetes Father Diabetes Brother [3] Current Outpatient Medications on File Prior to Visit Medication Sig Dispense Refill clonazePAM (KlonoPIN) 0.5 MG tablet Take 1 tablet (0.5 mg) by mouth if needed each day for anxiety (as needed for panic). 30 tablet 0 cromolyn (Nasachrom) 5.2 MG/ACT nasal spray Administer 1 spray into each nostril 4 times daily. 26 mL 12 cyclobenzaprine (Flexeril) 10 MG tablet Take 1 tablet (10 mg) by mouth if needed at bedtime for muscle spasms for up to 10 days. 30 tablet 0 fluticasone (Flonase) 50 MCG/ACT nasal spray PLEASE SEE ATTACHED FOR DETAILED DIRECTIONS hydrOXYzine pamoate (Vistaril) 25 MG capsule Take 1 capsule (25 mg) by mouth if needed in the morning and at bedtime for anxiety. May take the 2 caps at hs. Do not start before November 08, 2024. 30 capsule 1 Ketotifen Fumarate 0.035 % solution Administer 1 drop into affected eye(s) 2 times daily. 10 mL 2 levothyroxine (Synthroid) 25 MCG tablet Take 1 tablet (25 mcg) by mouth before breakfast. 90 tablet3 loratadine (Claritin) 10 MG tablet TAKE 1 TABLET (10 MG) BY MOUTH ONCE PER DAY. 90 tablet 0 losartan (Cozaar) 50 MG tablet TAKE 1 TABLET BY MOUTH EVERY DAY 90 tablet 1 pantoprazole (ProtoNix) 40 MG EC tablet TAKE 1 TABLET BY MOUTH BEFORE BREAKFAST. DO NOT CRUSH, CHEWOR SPLIT. 90 tablet 1 sertraline (Zoloft) 100 MG tablet Take 1 tablet (100 mg) by mouth in the morning. 90 tablet 1 [DISCONTINUED] GaviLAX 17 GM/SCOOP powder PLEASE SEE ATTACHED FOR DETAILED DIRECTIONS No current facility-administered medications on file prior to visit. documented in this encounter Miscellaneous Notes * Assessment & Plan Note - Evelia Dickinson MD - 03/31/2025 8:47 AM EST Associated Problem(s): Constipation No evidence of urinary tract infection; LUT symptoms attributed to colonic distension and irritation. - Prescribed pyridium for symptomatic relief of LUTS, Advised that pyridium may cause dark urine and possible staining of undergarments. - Prescribed docusate to be taken twice daily. - Prescribed liquid Gavilax to be taken at night or as needed PRN constipation > 1d. - Dietary recommendations include increased water intake, consumption of fruits such as, pears, bananas, prunes, and avoidance of rice, bread, potatoes, red meat, and processed foods. Encouraged ambulation. Offered option of bisacodyl suppository if needed, to call prn. documented in this encounter Plan of Treatment Upcoming Encounters Date Type Department Care Team (Late st Contact Info) Description 06/17/2025 10:15 AM EST Office Visit [facility] [address] [place] [address] Denisha Cardenas NP [address] [place] [address] documented as of this encounter Procedures Procedure Name Priority Date/Time Associated Diagnosis Comments POCT URINALYSIS DIPSTICK Routine 03/30/2025 9:33 AM EST Slow transit constipation documented in this encounter Results * POCT Urinalysis (03/30/2025 9:33 AM EST) Color, UA Yellow Clarity, UA Clear Glucose, UA Negative Bilirubin, UA Negative Ketones, UA Negative Spec Grav, UA 1.025 Blood, UA Negative Negative, None Detected pH, UA 5.5 Protein, UA Negative Urobilinogen, UA 0.2 Leukocytes, UA Negative Negative, Rare, Trace Nitrite, UA Negative Negative, None Detected Appearance, UA yellow QC Media Lot # [id number] Lot# Expiration Date Urine (Urine, Random) 03/30/2025 9:33 AM EST us Evelia Dickinson MD POINT OF CARE TEST ENTER /EDIT ORDERABLES Final Result documented in this encounter Visit Diagnoses Diagnosis Slow transit constipation- Primary documented in this encounter Additional Health Concerns Assessment Noted Time PHQ-9 Depression Total Score: 12 025 3:05 PM EDT documented as of this encounter Care Teams Edge Dyer Relationship Specialty Start Date End Date Denisha Cardenas NP [address] [place] [address] PCP - General Family Medicine 02/15/24 documented as of this encounter
--- OUTSIDE RECORDS SUMMARY | 2025-04-02 11:15 | XMS_ITS | Encounter Summary ---
Author Organization [facility] Address [address] [place] [address] [address] [place] [address] Care Team Providers Care Communication Professor Name Role Phone Denisha Cardenas NP Primary Care Provider [phone] Reason for Referral * Imaging (STAT) - Authorized Specialty Diagnoses / Procedures Referred By Gatoac t Referred To Contact Radiology Diagnoses Suprapubic pain Right lower quadrant abdominal pain Procedures CT Abdomen Pelvis w/ and w/o Contrast Debbie Chowdhury NP [address] [place] [address] Phone: tel: fax: [address] Phone: tel: fax: Referral ID Status Reason Start Date Expiration Date V isits Requested Visits Authorized [id number] Authorized 04/02/2025 04/02/2026 1 1 Encounter Details Date Type Department Care Team (Late st Contact Info) Description 04/02/2025 11:15 AM EST Office Visit [facility] [address] [place], [place] [phone] Debbie Chowdhury NP [address] [place], [place] [phone] Suprapubic pain (Primary Dx); Type 2 diabetes mellitus without complication, without long-term current use of insulin (HCC); Right lower quadrant abdominal pain; Elevated blood pressure reading in office with diagnosis of hypertension; Dysuria Social History Tobacco Use Types Packs/Day Years [...] Sign Reading Time Taken Comments Blood Pressure 144/90 04/02/2025 10:57 AM EST Pulse 75 04/02/2025 10:57 AM EST Temperature 36.4 C (97.6 F) 04/02/2025 10:57 AM EST Respiratory Rate 18 04/02/2025 10:57 AM EST Oxygen Saturation 99% 04/02/2025 10:57 AM EST Inhaled Oxygen Concentration - - Weight 100 kg (221 lb 8 oz) 04/02/2025 10:57 AM EST Height 160 cm (5' 3 ) 04/02/2025 10:57 AM EST Body Mass Index 39.24 04/02/2025 10:57 AM EST documented in this encounter Progress Notes * Debbie Chowdhury NP - 04/02/2025 11:15 AM EST SUBJECTIVE: Gerry Bright is a 59 y.o. female who with complaints of: lower abdominal pain. HPI Gerry Bright, 59-year-old female - Onset of lower abdominal pain and swelling since Saturday, March 29, 2025 - Burning sensation in lower abdomen, described as constant and located inside where urine passes - Pain rated as 7/10 in severity, mostly in the middle and right side of lower abdomen and lower back - History of gastritis with onset of symptoms as epigartic burning, relieved by Pepcid - Difficulty passing stools prior to visit, improved after medication for constipation prescribed in [place] - Urine described as very yellow, and malodorous. Has urinary frequency - Denies nausea, vomiting, fever, chills, kidney stones - Not sexually active for more than a year - History of hysterectomy and removal of ovaries due to fibroids and heavy periods at age 30 - Previous urine test performed 2 days prior to visit, reported as normal - Imaging of lower back performed prior to visit, MRI scheduled for Sunday Review of Systems Constitutional: Negative. Negative for chills and fever. Respiratory: Negative for chest tightness and shortness of breath. Cardiovascular: Negative for chest pain. Gastrointestinal: Positive for abdominal pain. Negative for constipation, diarrhea and nausea. Genitourinary: Negative for dysuria. Musculoskeletal: Negative for arthralgias, back pain, myalgias and neck pain. Skin: Negative. Negative for rash and wound. Neurological: Negative for weakness, light-headedness and headaches. Psychiatric/Behavioral: Negative for behavioral problems, confusion, decreased concentration and suicidal ideas. Current Medications[1] Allergies[2] OBJECTIVE: Visit Vitals BP (!) 144/90 (BP Location: Left arm, Patient Position: Sitting, BP Cuff Size: Adult) Pulse 75 Temp 97.6 ??F (36.4 ??C) (Oral) Resp 18 Ht 5' 3 (1.6 m) Wt 221 lb 8 oz (100 kg) SpO2 99% BMI 39.24 kg/m?? Smoking Status Never BSA 2.11 m?? Physical Exam Vitals reviewed. Exam conducted with a circuit clerk present (ROBER Mcclelland). Constitutional: General: She is not in acute distress. Appearance: Normal appearance. She is obese. She is not ill-appearing. HENT: Head: Normocephalic and atraumatic. Right Ear: External ear normal. Left Ear: External ear normal. Nose: Nose normal. Eyes: General: No scleral icterus. Extraocular Movements: Extraocular movements intact. Cardiovascular: Rate and Rhythm: Normal rate and regular rhythm. Pulses: Normal pulses. Heart sounds: Normal heart sounds. Pulmonary: Effort: Pulmonary effort is normal. No respiratory distress. Breath sounds: Normal breath sounds. Genitourinary: Comments: Middle and right side of vagina with tenderness during bimanual exam Musculoskeletal: General: Normal range of motion. Cervical back: Normal range of motion. Neurological: General: No focal deficit present. Mental Status: She is alert and oriented to person, place, and time. Gait: Gait normal. Psychiatric: Mood and Affect: Mood normal. Behavior: Behavior normal. Assessment & Plan Type 2 diabetes mellitus without complication, without long-term current use of insulin ([facility]) Orders: POCT Glucose Suprapubic pain - Suprapubic pain with burning sensation, possible urinary tract infection, vaginal infection, or other etiology such as appendicitis or diverticulitis. - Differential diagnosis includes urinary tract infection, vaginal infection, appendicitis, and diverticulitis. - Ordered urinalysis and urine culture to evaluate for urinary tract infection. - Ordered CT of abdomen and pelvic to assess for appendicitis, diverticulitis, or other pathology. - CBC ordered to assist in evaluating for infection - Recommended continuation of phenazopyridine for pain. Will give antibiotic to empirically for UTI - Advised to go to the emergency room if nausea, vomiting, inability to tolerate food, unbearable pain, or hematuria develops. - Will call with results. -Return/ED precautions reviewed Orders: Urinalysis, Complete, with Reflex to Culture CT Abdomen Pelvis w/ and w/o Contrast; Future phenazopyridine (Pyridium) 100 MG tablet; Take 2 tablets (200 mg) by mouth if needed in the morning, at noon, and at bedtime for bladder spasms for up to 2 days. CBC auto differential; Future Culture, Urine, Routine sulfamethoxazole-trimethoprim (Bactrim DS) 800-160 MG tablet; Take 1 tablet by mouth 2 times daily for 3 days. Right lower quadrant abdominal pain -As noted above Orders: CT Abdomen Pelvis w/ and w/o Contrast; Future CBC auto differential; Future Elevated blood pressure reading in office with diagnosis of hypertension -likely secondary to acute pain -med compliance, diet, and lifestyle changes recommended Dysuria Orders: Culture, Urine, Routine sulfamethoxazole-trimethoprim (Bactrim DS) 800-160 MG tablet; Take 1 tablet by mouth 2 times daily for 3 days. Follow-up with PCP as scheduled for routine health or sooner as needed This note was drafted using Ambient (AI) technology. The patient/patient's guardian has been informed and has consented to the use of this technology: Yes Hungarian interpretation provided by [facility] Interpretor J Carlos ID# [id number] [1] Current Outpatient Medications: clonazePAM (KlonoPIN) 0.5 MG tablet, Take 1 tablet (0.5 mg) by mouth if needed each day for anxiety(as needed for panic)., Disp: 30 tablet, Rfl: 0 cromolyn (Nasachrom) 5.2 MG/ACT nasal spray, Administer 1 spray into each nostril 4 times daily., Disp: 26 mL, Rfl: 12 cyclobenzaprine (Flexeril) 10 MG tablet, Take 1 tablet (10 mg) by mouth if needed at bedtime for muscle spasms for up to 10 days., Disp: 30 tablet, Rfl: 0 docusate sodium (Colace) 100 MG capsule, Take 1 capsule (100 mg) by mouth 2 times daily for 10 days., Disp: 20 capsule, Rfl: 0 fluticasone (Flonase) 50 MCG/ACT nasal spray, PLEASE SEE ATTACHED FOR DETAILED DIRECTIONS, Disp: , Rfl: GaviLAX 17 GM/SCOOP powder, Take 17 g by mouth if needed at bedtime (Constipation)., Disp: 116 g, Rfl: 0 hydrOXYzine pamoate (Vistaril) 25 MG capsule, Take 1 capsule (25 mg) by mouth if needed in the morning and at bedtime for anxiety. May take the 2 caps at hs. Do not start before November 08, 2024., Disp:30 capsule, Rfl: 1 Ketotifen Fumarate 0.035 % solution, Administer 1 drop into affected eye(s) 2 times daily., Disp: 10 mL, Rfl: 2 levothyroxine (Synthroid) 25 MCG tablet, Take 1 tablet (25 mcg) by mouth before breakfast., Disp: 90 tablet, Rfl: 3 loratadine (Claritin) 10 MG tablet, TAKE 1 TABLET (10 MG) BY MOUTH ONCE PER DAY., Disp: 90 tablet, Rfl: 0 losartan (Cozaar) 50 MG tablet, TAKE 1 TABLET BY MOUTH EVERY DAY, Disp: 90 tablet, Rfl: 1 pantoprazole (ProtoNix) 40 MG EC tablet, TAKE 1 TABLET BY MOUTH BEFORE BREAKFAST. DO NOT CRUSH, CHEW OR SPLIT., Disp: 90 tablet, Rfl: 1 phenazopyridine (Pyridium) 100 MG tablet, Take 2 tablets (200 mg) by mouth if needed in the morning, at noon, and at bedtime for bladder spasms for up to 2 days., Disp: 10 tablet, Rfl: 0 sertraline (Zoloft) 100 MG tablet, Take 1 tablet (100 mg) by mouth in the morning., Disp: 90 tablet, Rfl: 1 sulfamethoxazole-trimethoprim (Bactrim DS) 800-160 MG tablet, Take 1 tablet by mouth 2 times daily for 3 days., Disp: 6 tablet, Rfl: 0 [2] Allergies Allergen Reactions Shellfish Allergy Other Reaction(s): swelling, itching Dexamethasone Rash Ketorolac Tromethamine Rash documented in this encounter Miscellaneous Notes * Assessment & Plan Note - Debbie Chowdhury NP - 04/02/2025 11:15 AM ESTAssociated Problem(s): Type 2 diabetes mellitus without complication, without long-term current useof insulin (HCC) Orders: POCT Glucose documented in this encounter Plan of Treatment Upcoming Encounters Date Type Department Care Team (Late st Contact Info) Description 06/17/2025 10:15 AM EST Office Visit [facility] [address] [place] [address] Denisha Cardenas NP [address] [place] [address] Pending Results Name Type Priority Associated Diagnoses Date /Time Urinalysis, Complete, with Reflex to Culture Lab Routine Suprapubic pain 04/02/2025 11:37 AM EST Scheduled Orders Name Type Priority Associated Diagnoses Orde r Schedule CT Abdomen Pelvis w/ and w/o Contrast Imaging STAT Suprapubic pain Right lower quadrant abdominal pain Expected: 04/02/2025, Expires: 04/02/2026 CBC auto differential Lab Routine Suprapubic pain Right lower quadrant abdominal pain Expected: 04/02/2025 (Approximate), Expires: 04/02/2026 Culture, Urine, Routine Microbiology Routine Suprapubic pain Dysuria Ordered: 04/02/2025 documented as of this encounter Procedures Procedure Name Priority Date/Time Associated Diagnosis Comments URINALYSIS, COMPLETE, WITH REFLEX TO CULTURE Routine 04/02/2025 11:37 AM EST Suprapubic pain POCT GLUCOSE Routine 04/02/2025 10:58 AM EST Type 2 diabetes mellitus without complication, without long-term current use of insulin ([facility]) documented in this encounter Results * POCT Glucose (04/02/2025 10:58 AM EST) Glucose Blood, POC 155 60 - 200 mg/dL QC Media Lot # [id number] Lot# Expiration Date [id number] Blood Capillary blood specimen / Unknown 04/02/2025 10:58 AM EST us Debbie Chowdhury NP POINT OF CARE TEST ENTER/EDIT O RDERABLES Final Result documented in this encounter Visit Diagnoses Diagnosis Suprapubic pain- Primary Abdominal pain, other specified site Type 2 diabetes mellitus without complication, without long-term current use of insulin (HCC) Right lower quadrant abdominal pain Elevated blood pressure reading in office with diagnosis of hypertension Dysuria documented in this encounter Additional Health Concerns Assessment Noted Time PHQ-9 Depression Total Score: 12 025 3:05 PM EDT documented as of this encounter Care Teams Communication Professor Relationship Specialty Start Date End Date Denisha Cardenas NP [address] [place] [address] PCP - General Family Medicine 02/15/24 documented as of this encounter
[2025-04-02 18:38] LABS: Appearance Urine Turbid; Glucose Urine UA Negative (Negative); PH 5.5 (5.0-9.0); Specific Gravity - Urine 1.020 (1.005-1.025); UMIC TRIGGER UACC YES
--- OUTSIDE RECORDS SUMMARY | 2025-04-02 18:53 | XMS_ITS | Encounter Summary ---
Author Organization [employer] Address [address] [facility] [address] [place] [address] Care Team Providers Care Brush Clearing Laborer Name Role Phone Denisha Cardenas NP Primary Care Provider [phone] Encounter Details Date Type Department Care Team ([facility] st Contact Info) Description 03/19/2025 Orders Only [facility] [address] [place] [address] Provider, MD Renee Social History Tobacco Use Types Packs/Day Years [...] your housing situation today? I have sia sing 02/15/[address] you li [...] Description 06/17/2025 10:15 AM EST Office Visit [facility] [address] [place] [address] Denisha Cardenas NP [address] [place] [address] documented as of this encounter Procedures Procedure Name Priority Date/Time Associated Diagnosis Comments MAMMOGRAPHY Routine 03/10/2025 11:45 AM EDT documented in this encounter Results * Hm Mammography (03/10/2025 11:45 AM EDT) Anatomical Region Laterality Modality Other Historical Provider HEALTH MAINTENANCE Final Result documented in this encounter Visit Diagnoses Not on filedocumented in this encounter Additional Health Concerns Assessment Noted Time PHQ-9 Depression Total Score: 12 025 3:05 PM EDT documented as of this encounter Care Teams Brush Clearing Laborer Relationship Specialty Start Date End Date Denisha Cardenas NP [address] [place] [address] PCP - General Family Medicine 02/15/24 documented as of this encounter
--- OUTSIDE RECORDS SUMMARY | 2025-04-02 18:53 | XMS_ITS | Encounter Summary ---
Author Organization [employer] Address [address] [facility] 7 [place] [address] Care Team Providers Care Yarn Sorter Name Role Phone Denisha Cardenas NP Primary Care Provider [phone] Reason for Visit * Reason Onset Date Comments chart prep 04/01/2025 Encounter Details Date Type Department Care Team ([facility] st Contact Info) Description 04/01/2025 Telephone [facility] MEDICINE [address] [place], [place] [phone] Debbie Chowdhury NP [address] [place] [address] chart prep Social History Tobacco Use Types Packs/Day Years [...] encounter Miscellaneous Notes * Telephone Encounter - Deepak Ruiz MA - 04/01/2025 2:29 PM EST Chart Prep Labs: done Images: done Referrals: not applicable Vaccines due: Covid and Flu Screenings: colonoscopy, pap smear, and foot exam Overdue care gaps: Glucose and Oral health screening documented in this encounter Plan of Treatment Upcoming Encounters Date Type Department Care Team (Late st Contact Info) Description 06/17/2025 10:15 AM EST Office Visit [facility] MEDICINE [address] [place] [address] Denisha Cardenas NP [address] [place] [address] documented as of this encounter Visit Diagnoses Not on filedocumented in this encounter Additional Health Concerns Assessment Noted Time PHQ-9 Depression Total Score: 12 025 3:05 PM EDT documented as of this encounter Care Teams Yarn Sorter Relationship Specialty Start Date End Date Denisha Cardenas NP [address] [place] [address] PCP - General Family Medicine 02/15/24 documented as of this encounter
--- OUTSIDE RECORDS SUMMARY | 2025-04-02 18:53 | XMS_ITS | Encounter Summary ---
Author Organization [employer] Address [address] [facility] 7 [place] [address] Care Team Providers Care Aerospace Assembler Name Role Phone Denisha Cardenas NP Primary Care Provider Reason for Visit * Reason Onset Date Comments Nurse Triage 02/06/2025 Encounter Details Date Type Department Care Team ([facility] st Contact Info) Description 02/06/2025 Telephone [facility] MEDICINE [address] [place], [place] [phone] Denisha Cardenas NP [address] [place] [address] Nurse Triage Social History Tobacco Use Types [...] to Gerry Bright to triage below at [phone]. Reports was going to be referred to another provider for continuing Psych prescriber. Pt was getting klonopin and Zoloft. Pt was being [facility] by [facility] but did not contact [facility] after his departure for follow up on Prescriber referral. Pt states had bad panic attack yesterday. Pt has been without meds x over 1 month. Pt PCP Theresa out of office. Pt agrees to sick visit today to discuss med options and for [facility] consult. Protocol Used: Anxiety and Panic Attack (Adult) Protocol-Based Disposition: See in Office or Video Visit within 3 Days Future Appointments Date Time Provider Department Center 02/06/2025 1:45 PM Emani Farmer MD MEDICINE [facility] 03/06/2025 2:30 PM Denisha Cardenas NP MEDICINE [facility] Insurance verified as active per Real Time Eligibility in [facility]. Video visit offer not recorded Positive Triage [...] school or work) Please contact pt at [phone]. (Sami Speaker) documented in this encounter Plan of Treatment Upcoming Encounters Date Type Department Care Team (Late st Contact Info) Description 06/17/2025 10:15 AM EST Office Visit [facility] MEDICINE [address] [place] [address] Denisha Cardenas NP [address] [place] [address] documented as of this encounter Visit Diagnoses Not on filedocumented in this encounter Additional Health Concerns Assessment Noted Time PHQ-9 Depression Total Score: 7 09/10/19 25 10:37 AM EDT documented as of this encounter Care Teams Aerospace Assembler Relationship Specialty Start Date End Date Denisha Cardenas NP [address] [place] [address] PCP - General Family Medicine 02/15/24 documented as of this encounter
--- OUTSIDE RECORDS SUMMARY | 2025-04-02 18:53 | XMS_ITS | Encounter Summary ---
Author Organization [employer] Address [address] [facility] 7 [place] [address] Care Team Providers Care Supervisory Historian Name Role Phone Denisha Cardenas NP Primary Care Provider [phone] Reason for Visit * Reason Onset Date Comments Nurse Triage 04/01/2025 Encounter Details Date Type Department Care Team ([facility] st Contact Info) Description 04/01/2025 Telephone [facility] MEDICINE [address] [place], [place] [phone] Denisha Cardenas NP [address] [place] [address] Nurse Triage Social History Tobacco Use Types [...] encounter Miscellaneous Notes * Telephone Encounter - Jenn Yeager RN - 04/01/2025 9:26 AM EST TC placed to the pt with [facility] director social welfare #[id number] to follow up on pt continued abdominal pain. Pt wasseen in the [facility] on 03/30 for similar symptoms. The pt was advised to take pyridium for relief of burning sensation and stool softeners for constipation. The pt confirms that she has taken all medications prescribed but still endorses lower abdominal pain rated around 7/10. The pain does not radiate anywhere else and tends to get better when lying down. The pt has been able to pass stool and is able to eat solids and liquids. No blood noted in stool or urine. Pt afebrile. The pt still describes the abdominal pain as a burning sensation of my insides . Pt recommended to continue pushing fluids and eat fibrous foods. Pt agreeable to scheduling for a sick onsite appointment on 04/02 for continued evaluation of abdominal pain. Protocol Used: Abdominal Pain - Female (Adult) Protocol-Based Disposition: See in Office or Video Visit Today Video visit not offered Positive Triage Questions: * Moderate pain (e.g., interferes with normal activities that comes and goes (cramps) lasts > 24hours (Exception: Pain with diarrhea or vomiting; see Diarrhea or Vomiting Protocol.) * Patient wants to be seen * Mild pain (e.g., does not interfere with normal activities) and pain comes and goes (cramps) lasts > 48 hours (Exception: This same abdominal pain is a chronic symptom recurrent or ongoing AND present > 4 weeks.) * Abdominal pain is a chronic symptom (recurrent or ongoing AND lasting > 4 weeks) * All higher-acuity triage questions were negative * Telephone Encounter - Von Dalal - 04/01/2025 8:36 AM EST Symptom: Abdominal Pain - Female - Not Outcome: Talk to a nurse or provider within 15 minutes Reason: Severe pain now The caller accepted this outcome. Pt was seen at the walk in yesterday but is still experiencing pain. Contact pt at [phone] documented in this encounter Plan of Treatment Upcoming Encounters Date Type Department Care Team (Late st Contact Info) Description 06/17/2025 10:15 AM EST Office Visit [facility] MEDICINE [address] [place] [address] Denisha Cardenas NP [address] [place] [address] documented as of this encounter Visit Diagnoses Not on filedocumented in this encounter Additional Health Concerns Assessment Noted Time PHQ-9 Depression Total Score: 12 025 3:05 PM EDT documented as of this encounter Care Teams Supervisory Historian Relationship Specialty Start Date End Date Denisha Cardenas NP [address] [place] [address] PCP - General Family Medicine 02/15/24 documented as of this encounter
--- OUTSIDE RECORDS SUMMARY | 2025-04-02 18:53 | XMS_ITS | Encounter Summary ---
Author Organization [email or web address] Address [address] [facility] 7 [place] [address] Care Team Providers Care Side Trimmer Name Role Phone Denisha Cardenas NP Primary Care Provider [phone] Encounter Details Date Type Department Care Team ([facility] st Contact Info) Description 02/03/2025 Results Follow-Up [facility] MEDICINE [address] [place], [place] [phone] Maylin Mensah ANP [address] [place] [address] POCT urinalysis dipstick manually resulted, Culture, Urine, [...] Description 06/17/2025 10:15 AM EST Office Visit [facility] MEDICINE [address] [place] [address] Denisha Cardenas NP [address] [place] [address] documented as of this encounter Visit Diagnoses Not on filedocumented in this encounter Additional Health Concerns Assessment Noted Time PHQ-9 Depression Total Score: 7 09/10/19 25 10:37 AM EDT documented as of this encounter Care Teams Side Trimmer Relationship Specialty Start Date End Date Denisha Cardenas NP [address] [place] [address] PCP - General Family Medicine 02/15/24 documented as of this encounter
--- OUTSIDE RECORDS SUMMARY | 2025-04-02 18:53 | XMS_ITS | Encounter Summary ---
Author Organization [email or web address] Address [address] [facility] [address] [place] [address] Care Team Providers Care Dehydrating Press Operator Name Role Phone April Cardenasily VALERIANO Primary Care Provider [phone] Encounter Details Date Type Department Care Team (Latest Contact Info) Description 04/02/2025 Travel Social History Tobacco Use Types Packs/Day [...] Description 06/17/2025 10:15 AM EST Office Visit [facility] MEDICINE [address] [place] [address] Denisha Cardenas NP [address] [place] [address] documented as of this encounter Visit Diagnoses Not on filedocumented in this encounter Additional Health Concerns Assessment Noted Time PHQ-9 Depression Total Score: 12 025 3:05 PM EDT documented as of this encounter Care Teams Dehydrating Press Operator Relationship Specialty Start Date End Date Denisha Cardenas NP [address] [place] [address] PCP - General Family Medicine 02/15/24 documented as of this encounter
--- OUTSIDE RECORDS SUMMARY | 2025-04-02 18:53 | XMS_ITS | Encounter Summary ---
Author Organization [employer] Address [address] [facility] [address]t [place] [address] Care Team Providers Care Electronics Recycler Name Role Phone April Cardenasily VALERIANO Primary Care Provider [phone] Encounter Details Date Type Department Care Team (Latest Contact Info) Description 03/30/2025 Travel Social History Tobacco Use Types Packs/Day [...] Description 06/17/2025 10:15 AM EST Office Visit [facility] MEDICINE [address] [place] [address] Denisha Cardenas NP [address] [place] [address] documented as of this encounter Visit Diagnoses Not on filedocumented in this encounter Additional Health Concerns Assessment Noted Time PHQ-9 Depression Total Score: 12 025 3:05 PM EDT documented as of this encounter Care Teams Electronics Recycler Relationship Specialty Start Date End Date Denisha Cardenas NP [address] [place] [address] PCP - General Family Medicine 02/15/24 documented as of this encounter
--- OUTSIDE RECORDS SUMMARY | 2025-04-02 18:53 | XMS_ITS | Encounter Summary ---
Author Organization [employer] Address [address] [facility] [address] [place] [address] Care Team Providers Care Finisher Polisher Name Role Phone Denisha Cardenas NP Primary Care Provider [phone] Encounter Details Date Type Department Care Team ([facility] st Contact Info) Description 10/14/2024 Orders Only [facility] MEDICINE [address] [place], [place] [phone] Emani Farmer MD [address] [place] [address] Social History Tobacco Use Types Packs/Day Years [...] Description 06/17/2025 10:15 AM EST Office Visit [facility] MEDICINE [address] [place] [address] Denisha Cardenas NP [address] [place] [address] documented as of this encounter Visit Diagnoses Not on filedocumented in this encounter Additional Health Concerns Assessment Noted Time PHQ-9 Depression Total Score: 7 09/10/19 25 10:37 AM EDT documented as of this encounter Care Teams Finisher Polisher Relationship Specialty Start Date End Date Denisha Cardenas NP [address] [place] [address] PCP - General Family Medicine 02/15/24 documented as of this encounter
--- OUTSIDE RECORDS SUMMARY | 2025-04-02 18:53 | XMS_ITS | Clinical Summary ---
Author Organization [employer] Address [address] [facility] 7 [place] [address] Care Team Providers Care Fabrication Department Supervisor Name Role Phone Denisha Cardenas NP Primary Care Provider [phone] Allergies Active Allergy Reactions Criticality Noted Date [...] before breakfast. 90 tablet 3 03/28/20 24 Active Ketotifen Fumarate 0.035 % solutionIndica tions:Seasonal allergic rhinitis due to pollen Administer 1 drop into affected eye(s) 2 times daily. 10 mL 2 10/07/19 25 Active cromolyn (Nasachrom) 5.2 MG/ACT nasal spray Administer 1 spray into each nostril 4 times daily. 26 mL 12 10/15/19 25 10/14/ 026 Active pantoprazole (ProtoNix) 40 MG EC [...] PLEASE SEE ATTACHED FOR DETAILED DIRECTIONS 10/23/19 Active sertraline (Zoloft) 100 MG tabletIndicati ons:Anxiety Take 1 tablet (100 mg) by mouth in the morning. 90 tablet 1 02/07/20 25 Active clonazePAM (KlonoPIN) 0.5 MG tabletIndicati ons:JIMBO (generalized anxiety disorder) Take 1 tablet (0.5 mg) by mouth if needed each day for anxiety (as needed for panic). 30 tablet 02/07/20 Active loratadine (Claritin) 10 MG tabletIndicati ons:Seasonal allergic rhinitis due to pollen TAKE 1 TABLET (10 MG) BY MOUTH ONCE PER DAY. 90 tablet 02/10/20 Active losartan (Cozaar) 50 MG tablet TAKE 1 TABLET BY MOUTH EVERY DAY 90 tablet 1 02/18/20 Active GaviLAX 17 GM/SCOOP powder Take 17 g by mouth if needed at bedtime (Constipation ). 116 g 03/30/20 25 Active docusate sodium (Colace) 100 MG capsule Take 1 capsule (100 mg) by mouth 2 times daily for 10 days. 20 capsule 03/30/20 25 025 Active phenazopyridin e (Pyridium) 100 MG tabletIndicati ons:Suprapubic pain Take 2 tablets (200 mg) by mouth if needed in the morning, at noon, and at bedtime for bladder spasms for up to 2 days. 10 tablet 04/02/20 25 025 Active sulfamethoxazo le-trimethopri m (Bactrim DS) 800-160 MG tabletIndicati ons:Suprapubic pain,Dysuria Take 1 tablet by mouth 2 times daily for 3 days. 6 tablet 04/02/20 25 025 Active GaviLAX 17 GM/SCOOP powder PLEASE SEE ATTACHED FOR DETAILED DIRECTIONS 11/04/19 25 025 Discontinued(Re order (will not trigger notification to Pharmacy)) phenazopyridin e (Pyridium) 100 MG tablet Take 1 tablet (100 mg) by mouth if needed in the morning, at noon, and at bedtime for bladder spasms. 10 tablet 03/30/20 025 Discontinued(Re order (will not trigger notification to Pharmacy)) Active Problems Problem Noted Date Diagnosed Date Type 2 diabetes mellitus wit hout complication, without long-term current use of insulin 03/06/2025 Assessment & Plan (04/02/2025 3:48 PM EST): Orders: POCT Glucose Assessment & Plan (03/06/2025 3:19 PM EDT): Orders: POCT Glucose Lumbar radiculopathy 03/06/2025 Assessment & Plan (03/06/2025 3:19 PM EDT): Orders: XR Lumbar Spine Complete 4+ Views; Future Referral to Physiatry; Future Constipation 02/06/2025 Assessment & Plan (03/31/2025 8:47 AM EST): No evidence of urinary tract infection; LUT [...] bisacodyl suppository if needed, to call prn. Right sciatic nerve pain 11/14/2024 Assessment & [...] organization. Date Type Department Care Team Description 04/02/2025 11:15 AM EST Office Visit [facility] [address] [place] [phone] Debbie Chowdhury NP Suprapubic pain (Primary Dx); Type 2 diabetes mellitus without complication, without long-term current use of insulin (HCC); Right lower quadrant abdominal pain; Elevated blood pressure reading in office with diagnosis of hypertension; Dysuria 04/02/2025 Travel 04/01/[address] [address] Debbie Chowdhury NP chart prep 04/01/[address] [address] Denisha Cardeans NP Nurse Triage 03/30/2025 9:00 AM EST Office Visit [facility] [address] [place] [phone] Evelia Dickinson MD Slow transit constipation (Primary Dx) 03/30/2025 Travel 03/19/2025 Orders Only [facility] [address] [place], [place] [phone] Renee Norton MD 03/06/2025 2:30 PM EDT Office Visit [address] [address] Denisha Cardenas NP Lumbar radiculopathy (Primary Dx); Type 2 diabetes mellitus without complication, without long-term current use of insulin (HCC) 03/06/2025 Travel 03/05/[address] [address] Denisha Cardenas NP Chart Prep 02/16/[address] [address] Denisha Cardenas NP 02/08/[address] [address] Denisha Cardenas NP Seasonal allergic rhinitis due to pollen 02/06/2025 1:45 PM EDT Office Visit [address] [address] Emani Farmer MD Anxiety; JIMBO (generalized anxiety disorder) 02/06/2025 Travel 02/06/[address] [address] Denisha Cardenas, VALERIANO Nurse Triage 02/03/2025 1:15 PM EDT Office Visit [facility] [address] [place] [phone] Jeni Bloodica, OD Elevated IOP, bilateral (Primary Dx) 02/03/2025 Results Follow-Up [facility] [address] [place] [phone] Maylin Mensah ANP POCT urinalysis dipstick manually resulted, Culture, Urine, Routine 02/03/2025 Travel 01/30/2025 9:00 AM EDT Office Visit [facility] [address] [place] [phone] Maylin Mensah ANP Ketonuria (Primary Dx); UTI symptoms 01/30/2025 Travel 01/20/2025 Patient Outreach [facility] [address] [place] [phone] Denisha Cardenas NP Care Coordination (C3 [facility] Yumiko Cantuz telephone call graduate ) 01/20/2025 Patient Outreach [facility] [address] [place] [phone] Denisha Cardenas NP Care Coordination (C3 [facility] Ram telephone call outreach) 01/13/[address] [facility] [address] [place] [phone] Cecilia Blood, ENRIKE 01/13/2025 Travel from Last 3 Months Family History Medical [...] Mass Index 39.24 04/02/2025 10:57 AM EST Plan of Treatment Upcoming Encounters Date Type Department Care Team (Late st Contact Info) Description 06/17/2025 10:15 AM EST Office Visit [facility] [address] [place] [address] Denisha Cardenas NP [address] [place] [address] Health Maintenance Due Date Last Done Comments [...] (1 of 2) 2016 COVID-19 Vaccine ( - season) 2025 Influenza Vaccine (#1) 2025 Diabetes: Hemoglobin A1C 07/30/2025 025, 10/06/2024, 02/15/2024 Depression Monitoring 09/04/2025 03/06/2025, 025 SDOH Screening 09/11/2025 09/11/2024 Lipid Panel 01/30/2026 01/30/2025, 02/15/2024 Eye Exam 02/03/2026 02/03/2025, 09/0 01/2025, 02/03/2025, Additional history exists Alcohol/Substance Use Screening 03/06/2026 03/06/2025 Disability Screening 03/06/2026 03/06/2025 Mammogram 03/10/2026 03/10/2025, 03/08/2024 Tobacco Screening 04/02/2026 04/02/2025 RSV Patients and Patients Aged 60 years [...] complication, without long-term current use of insulin ([facility]) POCT URINALYSIS DIPSTICK Routine 03/30/2025 9:33 AM EST Slow transit constipation AMB REFERRAL TO PHYSICAL MEDICINE REHAB/PHYSIATRY Routine 03/20/2025 Lumbar radiculopathy XR LUMBAR SPINE COMPLETE 4+ VIEWS Routine 03/18/2025 10:02 AM EDT Lumbar radiculopathy HM MAMMOGRAPHY Routine 03/10/2025 11:45 AM EDT POCT GLUCOSE Routine 03/06/2025 2:46 PM EDT Type 2 diabetes mellitus without complication, without long-term current use of insulin ([facility]) URINALYSIS, COMPLETE, WITH REFLEX TO CULTURE Routine 02/04/2025 12:25 PM EDT UTI symptoms Ketonuria LIPID PANEL, STANDARD Routine 01/30/2025 9:21 AM EDT Type 2 diabetes mellitus without complication, without long-term current use of insulin ([facility]) TSH W/REFLEX TO FT4 Routine 01/30/2025 9 :21 AM EDT Hypothyroidism, unspecified type HEMOGLOBIN A1C Routine 01/30/2025 9:21 AM EDT Hyperglycemia COMPREHENSIVE METABOLIC PANEL Routine 01/30/2025 9:21 AM EDT Hyperglycemia CULTURE, URINE, ROUTINE Routine 01/30/2025 8:59 AM EDT UTI symptoms POCT URINALYSIS DIPSTICK Routine 01/30/2025 8:56 AM EDT UTI symptoms from Last 3 Months Results * POCT Glucose (04/02/2025 10:58 AM EST) Only the most recent of2 resultswithin the time period is included. Glucose Blood, POC 155 60 - 200 mg/dL QC Media Lot # [id number] Lot# Expiration Date Blood Capillary blood specimen / Unknown 04/02/2025 10:58 AM EST Debbie Chowdhury NP POINT OF CARE TEST ENTER/EDIT O RDERABLES Final Result * POCT Urinalysis (03/30/2025 9:33 AM EST) Only the most recent of2 resultswithin the time period is included. Color, UA Yellow Clarity, UA Clear Glucose, UA Negative Bilirubin, UA Negative Ketones, UA Negative Spec Grav, UA 1.025 Blood, UA Negative Negative, None Detected pH, UA 5.5 Protein, UA Negative Urobilinogen, UA 0.2 Leukocytes, UA Negative Negative, Rare, Trace Nitrite, UA Negative Negative, None Detected Appearance, UA yellow QC Media Lot # [id number] Lot# Expiration Date ,025 Urine (Urine, Random) 03/30/2025 9:33 AM EST Evelia Dickinson MD POINT OF CARE TEST ENTER /EDIT ORDERABLES Final Result * Referral to Physiatry (03/20/2025) Denisha Cardenas NP OUTPATIENT REFERRAL ORDERABLES F inal Result * XR Lumbar Spine Complete 4+ Views (03/18/2025 10:02 AM EDT) Anatomical Region Laterality Modality Spine, L-spine Radiographic Sultana ging 03/18/2025 10:0 2 AM EDT Narrative 03/18/2025 10:19 AM EDT [address] [address] XRay Report Signed Patient: Gerry Milner MR#: [id number] : 1965 Acct:[id number] Age/Sex: 59 / F ADM Date: 03/18/25 Loc: HO.XRAY Attending Dr: Denisha Cardenas NP Ordering Physician: Denisha Cardenas NP Date of Service: 03/18/25 Procedure(s): XR lumbar spine 4V min Accession Number(s): [id number] cc: Denisha Cardenas NP Reason for Exam: [...] 03/18/25 1016 DD/ 1002 TD/TT: 03/18/25 1008 Procedures Analyst: MIKAL Procedure Note Donotuseinterpreter, Image - 03/18/[address] [address] XRay Report Signed Patient: Gerry Milner JMR#: [id number] : 1965Acct:[id number] Age/Sex: 59 / FADM Date: 03/18/25 Loc: HO.XRAY Attending Dr: Denisha Cardenas PAN OPERATOR Ordering Physician: Denisha Cardenas NP Date of Service: 03/18/25 Procedure(s): XR lumbar spine 4V min Accession Number(s): [id number] cc: Denisha Cardenas NP Reason for Exam: [...] 03/18/25 1016 DD/ 1002 TD/TT: 03/18/25 1008 Procedures Analyst: MIKAL us Denisha Cardenas PAN OPERATOR IMG XR PROCEDURES Final Result * Hm Mammography (03/10/2025 11:45 AM EDT) Anatomical Region Laterality Modality Other us Historical Provider HEALTH MAINTENANCE Final Result * (ABNORMAL) Urinalysis, Complete, with Reflex to Culture (02/04/2025 12:25 PM EDT) Color Urine Yellow [facility] Appearance Urine Clear [facility] PH 5.5 5.0 - 9.[address] [facility] Glucose Urine UA Negative Negative mg/dL [facility] Urine Blood Negative Negative [facility] Specific [place] - Urine 1.015 1.005 - 1.[address] [facility] Urine Protein Negative Neg-Trace mg/dL [facility] Urine Ketones Negative Negative mg/dL [facility] Nitrite Urine Negative Negative [facility] Leukocyte Esterase Urine Trace(A) Negative [facility] RBC Urine 0-2 0 - 2 /HPF [facility] Urine WBC 0-5 0 - 5 /HPF [facility] Urine Squamous Epithelial Cell 0-2 0 - 2 /HPF [facility] Urine Bacteria None Seen None Seen [facility] Hyaline Casts, Urine 0-2 0 - 2 /LPF [facility] Urine 02/04/2025 12:2 5 PM EDT 02/04/2025 1:26 PM EDT Narrative [facility] - 02/04/2025 2:02 PM EDT Urine, Clean Catch us Maylin Mensah ANP LAB URINE ORDERABLES Final Resul t Performing Organization Address [facility] de Phone Number [facility] [address] [place] [phone] * TSH W/Reflex to FT4 (01/30/2025 9:21 AM EDT) TSH reflex Free T4 0.97 0.32 - 4.0 uIU/mL [facility] Blood Venous blood specimen / Unknown 01/30/2025 9:21 AM EDT 01/30/2025 11:13 AM EDT us Denisha Cardenas PAN OPERATOR LAB BLOOD ORDERABLES Final Resul t Performing Organization Address [facility] Co de Phone Number [facility] [address] [place] [address] [phone] * (ABNORMAL) Hemoglobin A1c (01/30/2025 9:21 AM EDT) Hemoglobin A1c 6.2(H) <6.0 % [facility] Comment:Hemoglobin A1C Refer ence Range Adults: 4.8 - 6.0 % Non diabetic: < 6.0 % Goal: < 7.0 %Additional Action Suggested: > 8.0 %Note: Hemoglobin A1c results are invalid for patients with abnormal amounts of HbF. Blood transfusions may impact the HbA1c concentration in the patient sample. Estimated Average Glucose 131 mg/dL [facility] Comment:eAG = Estimated ave rage glucose which is %A1C expressed asaverage glucose, using the formula of the [id number] Glucose study (ADAG), Diabetes Care, Vol.31,#8,Dec. 2007 Blood Venous blood specimen / Unknown 01/30/2025 9:21 AM EDT 01/30/2025 11:13 AM EDT us Denisha Cardenas PAN OPERATOR LAB BLOOD ORDERABLES Final Resul t [facility] [address] [place] [phone] * (ABNORMAL) Lipid Panel, Standard (01/30/2025 9:21 AM EDT) Triglycerides 112 <150 mg/dL [facility] Comment:Desirable Triglyceri de: less than 150 mg/dLBorderline High Triglyceride 150-199 mg/dLHigh Triglyceride: 200-499 mg/dLVery High Triglyceride: greater than or equal to 5OO mg/dL Cholesterol 224(H) <200 mg/dL [facility] Comment:Desirable Cholestero l: less than 200 mg/dLBorderline High Cholesterol: 200-239 mg/dLHigh Cholesterol: greater than 239 mg/dL LDL Cholesterol Calculated 157(H) <100 mg/dL [facility] Comment:Desirable LDL: less than 100 mg/dLNear Optimal/Above Optimal LDL: 110- 129 mg/dLBorderline High LDL: 130-159 mg/dLHigh LDL: 160-189 mg/dLVery High LDL: greater than or equal to 190 mg/dL HDL Cholesterol 45 >40 mg/dL [facility] Comment:Desirable HDL: great er than 40 mg/dL Note: This HDL assay may give artificially low results in patients with liver disease. Blood Venous blood specimen / Unknown 01/30/2025 9:21 AM EDT 01/30/2025 11:13 AM EDT us Denisha Cardenas NP LAB BLOOD ORDERABLES Final Resul t [facility] [address] [place] [address] [phone] * (ABNORMAL) Comprehensive Metabolic Panel (01/30/2025 9:21 AM EDT) Sodium 141 135 - 145 mmol/L [facility] Potassium 4.1 3.3 - 5.1 mmol/L [facility] Chloride 109(H) 96 - 108 mmol/L [facility] Carbon Dioxide 26 22 - 29 mmol/L [facility] Anion Gap 10(L) 12 - [address] [facility] Urea Nitrogen (BUN) 10 9 - 16 mg/dL [facility] Creatinine, Serum 0.68 0.5 - 1.4 mg/dL [facility] Estimated Glomerular Filt Rate >[address] [facility] Comment:Chronic Kidney Disea se: Estimated GFR < 60 mL/min/1.66n1Aroldj Kidney Disease: Estimated GFR < 15 mL/min/1.73m2 Glucose 99 60 - 115 mg/dL [facility] Calcium 9.1 8.4 - 10.2 mg/dL [facility] Bilirubin, Total 0.4 0.0 - 1.0 mg/dL [facility] Aspartate Amino Transferase 24 5 - 31 U/L [facility] Alanine Aminotransferase 14 0 - 31 U/L [facility] Total Protein 7.4 6.5 - 8.0 g/dL [facility] Albumin Level 4.1 3.5 - 5.0 g/dL [facility] Alkaline Phosphatase 69 39 - 117 U/L [facility] Blood Venous blood specimen / Unknown 01/30/2025 9:21 AM EDT 01/30/2025 11:13 AM EDT us Denisha Cardenas PAN OPERATOR LAB BLOOD ORDERABLES Final Resul t Performing Organization Address [facility]/ZIP Co de Phone Number [facility] [address] [place] [phone] * Culture, Urine, Routine (01/30/2025 8:59 AM EDT) Urine Urine specimen obtained by clean catch procedure / Unknown 01/30/2025 8:59 AM EDT 01/30/2025 4:39 PM EDT Comment:UACC Narrative [facility] - 02/01/2025 11:00 AM EDT Urine Culture Report Result Urine Culture 10,000 to 50,000 cfu/ml Urine Culture Mixed bacterial mahad characteristic of Urine Culture urogenital contamination. Specimen Source: Urine clean catch us Maylin LESTER LAB MICROBIOLOGY - GENERAL ORDER ANIYAH Final Result Performing Organization Address [facility] Co de Phone Number [facility] [address] [place] [phone] from Last 3 Months Insurance C3 Care Teams Fabrication Department Supervisor Relationship Specialty Start Date End Date Denisha Cardenas NP [address] [place] [phone] PCP - General Family Medicine 02/15/24
--- OUTSIDE RECORDS SUMMARY | 2025-04-02 18:53 | XMS_ITS | Clinical Summary ---
Author Organization [facility] ity Address [address] [place] [address] Care Team Providers Care Rv Repairer Name Role Phone Unavailable Primary Care Provider [...]
[2025-04-02 19:21] LABS: UACC Culture Trigger YES
== END 2025-04-02 18:05 | disposition home or self-care (01) ==
LOC: HO.HHCLNP 18:04
PROVIDERS: Visit Provider Nurse Practitioner
DX: R10.24 Suprapubic pain (principal); R30.0 Dysuria
CPT/HCPCS: 81001; 87086

== ENCOUNTER 2025-04-03 08:10 | Outpatient (REF) | payer MEDICAID, SELFPAY ==
[2025-04-03 11:40] LABS: MANUAL DIFF FLAG NO
[2025-04-03 11:55] LABS: Hematocrit 40.5 % (37.0-47.0); Hemoglobin 12.6 g/dl (12.0-16.0); Imm Gran Abs Auto 0.02 X10*3/uL (0.00-0.03); Imm Gran Pct Auto 0.4 % (0.0-0.4); Lymphocytes Absolute Auto 1.7 X10*3/uL (1.2-4.9); Mean Corpuscular HGB Conc 31.1 g/dl (31.0-35.0); Mean Corpuscular Hemoglobin 26.5 pg (27.0-33.0); Mean Corpuscular Volume 85.3 fL (80.0-98.0); NRBC Abs Auto 0.000 X10*3/uL (0.0-0.012); NRBC Pct Auto 0.0 /100WBC (0.0-0.2); Platelet Count 299 X10*3/uL (160-400); Red Blood Count 4.75 X10*6/uL (4.20-5.50); White Blood Count 5.4 X10*3/uL (4.8-10.8)
== END 2025-04-03 08:11 | disposition home or self-care (01) ==
LOC: HO.HHCL 08:10
PROVIDERS: PCP Nurse Practitioner Family; Visit Provider Nurse Practitioner
DX: K58.2 Mixed irritable bowel syndrome (principal); R10.24 Suprapubic pain; R10.31 Right lower quadrant pain
CPT/HCPCS: 36415; 84443; 85025